=== PATIENT | female | born 1960 | race Caucasian/White ===

== ENCOUNTER → 2018-12-19 | Day surgery (SDC) | payer BC ==
--- OUTSIDE RECORDS SUMMARY | 2018-12-19 09:38 | XMS REPORT | Clinical Summary ---
:1960 Author Organization [facility] Address [address] [place] [address] Care Team Providers Name Role Phone Severo Gonsales MD Primary Care Provider Allergies Active Allergy Reactions Severity Noted Date Comments Sulfa (Sulfonamide Antibiotics) 07/12/2016 Medications Medication Sig Dispensed Refills Start Date End Date Status inFLIXimab Infuse into a 0 Active (REMICADE) 100 mg venous catheter. injection Infuse every 6 weeks venlafaxine XR Take 150 mg by 0 Active (EFFEXOR-XR) 150 MG mouth daily. 24 hr capsule multivitamin Take 1 capsule by 0 Active capsule mouth daily. atorvastatin Take 80 mg by 0 Active (LIPITOR) 80 MG mouth daily. tablet levothyroxine TAKE ONE (1) 1 05/18/2017 Active (SYNTHROID, TABLET(S) BY LEVOXYL) 100 mcg MOUTH TWICE A tablet WEEK. buPROPion XL TAKE ONE (1) 1 06/13/2017 Active (WELLBUTRIN XL) 150 TABLET(S) BY MG 24 hr tablet MOUTH ONCE A DAY IN THE MORNING. venlafaxine XR TAKE ONE (1) 1 06/13/2017 Active (EFFEXOR-XR) 75 MG CAPSULE(S) BY 24 hr capsule MOUTH ONCE A DAY WITH FOOD. TAKE WITH 150MG. mercaptopurine TAKE ONE AND 45 tablet 0 12/18/2017 01/15/20 Discontinued (PURINETHOL) 50 mg ONE-HALF (1 AND 18 chemo tablet 1/2) TABLET(S) BY MOUTH ONCE A DAY. mercaptopurine TAKE ONE AND 45 tablet 0 01/15/2018 02/15/20 (PURINETHOL) 50 mg ONE-HALF (1 AND 18 chemo tablet 1/2) TABLET(S) BY MOUTH ONCE A DAY. mercaptopurine TAKE ONE AND 45 tablet 0 02/08/2018 03/10/20 (PURINETHOL) 50 mg ONE-HALF (1 AND 18 chemo tablet 1/2) TABLET(S) BY MOUTH ONCE A DAY. sodium,potassium,ma Take 2 Bottles by 354 mL 0 09/05/2018 09/05/19 g sulfates (SUPREP mouth once for 1 19 BOWEL PREP KIT) dose. Use as 17.5-3.13-1.6 gram directed per recon soln physician office instructions Dispense one kit which contains 2 bottles Active Problems No known active problems Encounters Date Type Specialty Care Team Description 11/06/2018 Telephone Gastroenterology Antonette Muñoz LVN 11/05/2018 Telephone Gastroenterology Antonette Muñoz Ulcerative pancolitis (HCC) (Primary Dx); TOPOLOGY TEACHER Vitamin B 12 deficiency; Malaise and fatigue 10/19/2018 Telephone GastroenterAntonette Matos, TOPOLOGY TEACHER 10/17/2018 Lab Lab Loretta Moncada MD 10/17/2018 Documentation GastroenterLoretta Harrell, Colonoscopy 10/12/2018 Telephone Loretta Moore MD 09/07/2018 Telephone Gastroenterology Antonette Muñoz, TOPOLOGY TEACHER 09/05/2018 Office Visit GastroenterLoretta Harrell, Ulcerative pancolitis without complication (HCC) (Primary Dx); B12 deficiency 09/05/2018 Telephone Loretta Moore MD 08/08/2018 Telephone Gastroenterology Antonette Muñoz, TOPOLOGY TEACHER 05/28/2018 Telephone Gastroenterology Antonette Muñoz, TOPOLOGY TEACHER 04/09/2018 Telephone Gastroenterology Antonette Muñoz, TOPOLOGY TEACHER 03/07/2018 Documentation GastroenterLoretta Harrell, MARY kramer MD 03/06/2018 Refill Loretta Moore MD 03/05/2018 Office Visit GastroenterLoretta Harrell, Ulcerative pancolitis without complication (Primary Dx); GREYSON positive; B12 deficiency; Depression, unspecified depression type; Arthralgia, unspecified joint; Recurrent infections; Encounter for medication management 02/08/2018 Refill Loretta Moore L., MD 01/14/2018 Refill Gastroenterology Loretta Moncada MD after 12/18/2017 Family History Patient is adopted Medical History Relation Name Comments Colon cancer Neg Hx Colon polyps Neg Hx Social History Tobacco Use Types Packs/Day Years Used Date Former Smoker Smokeless Tobacco: Never Used Alcohol Use Drinks/Week oz/Week Comments Yes Sex Assigned at Date Recorded Not on file Job Start Date Occupation Industry Not on file Not on file Not on file Travel History Travel Start Travel End No recent travel history available. Last Filed Vital Signs Vital Sign Reading Time Taken Blood Pressure 107/73 09/05/2018 2:33 PM IP LITIGATION ASSOCIATE Pulse 103 09/05/2018 2:33 PM IP LITIGATION ASSOCIATE Temperature 36.7 C (98 F) 03/05/2018 2:38 PM CDT Respiratory Rate - - Oxygen Saturation - - Inhaled Oxygen Concentration - - Weight 64.9 kg (143 lb) 09/05/2018 2:33 PM IP LITIGATION ASSOCIATE Height 167.6 cm (5' 6") 09/05/2018 2:33 PM IP LITIGATION ASSOCIATE Body Mass Index 23.08 09/05/2018 2:33 PM IP LITIGATION ASSOCIATE Plan of Treatment Date Type Specialty Care Team Description 03/14/2019 Office Visit Gastroenterology Loretta Moncada MD [address] [facility] [address] [place] [address] [phone] Health Maintenance Due Date Last Done Comments BREAST CANCER SCREENING 2009 SHINGLES VACCINES (#1) 2009 INFLUENZA VACCINE 02/07/2019 04/14/2016 COLONOSCOPY SCREENING 10/17/2020 10/17/2018, 09/23/2016 Procedures Procedure Name Priority Date/Time Associated Diagnosis Comments COMPREHENSIVE Routine 11/05/2018 1:30 Ulcerative Results for this METABOLIC PANEL PM CDT pancolitis (HCC) procedure are in Vitamin B 12 the results deficiency section. Malaise and fatigue CBC WITH PLATELET AND Routine 11/05/2018 1:30 Ulcerative Results for this DIFFERENTIAL PM CDT pancolitis (HCC) procedure are in Vitamin B 12 the results deficiency section. Malaise and fatigue SURGICAL PATHOLOGY Routine 10/17/2018 11:00 Results for this REQUEST AM CDT procedure are in the results section. TOTAL IRON BINDING Routine 09/05/2018 3:25 Ulcerative Results for this CAPACITY PM IP LITIGATION ASSOCIATE pancolitis without procedure are in complication (HCC) the results B12 deficiency section. FERRITIN LEVEL Routine 09/05/2018 3:25 Ulcerative Results for this PM IP LITIGATION ASSOCIATE pancolitis without procedure are in complication (HCC) the results B12 deficiency section. VITAMIN B12 LEVEL Routine 09/05/2018 3:25 Ulcerative Results for this PM IP LITIGATION ASSOCIATE pancolitis without procedure are in complication (HCC) the results B12 deficiency section. SEDIMENTATION RATE Routine 09/05/2018 3:25 Ulcerative Results for this PM IP LITIGATION ASSOCIATE pancolitis without procedure are in complication (HCC) the results B12 deficiency section. C-REACTIVE PROTEIN Routine 09/05/2018 3:25 Ulcerative Results for this PM IP LITIGATION ASSOCIATE pancolitis without procedure are in complication (HCC) the results B12 deficiency section. THYROID STIMULATING Routine 09/05/2018 3:25 Ulcerative Results for this HORMONE PM IP LITIGATION ASSOCIATE pancolitis without procedure are in complication (HCC) the results B12 deficiency section. VITAMIN D 25 HYDROXY Routine 09/05/2018 3:25 Ulcerative Results for this LEVEL PM IP LITIGATION ASSOCIATE pancolitis without procedure are in complication (HCC) the results B12 deficiency section. COMPREHENSIVE Routine 09/05/2018 3:25 Ulcerative Results for this METABOLIC PANEL PM IP LITIGATION ASSOCIATE pancolitis without procedure are in complication (HCC) the results B12 deficiency section. CBC HEMOGRAM Routine 09/05/2018 3:25 Ulcerative Results for this PM IP LITIGATION ASSOCIATE pancolitis without procedure are in complication (HCC) the results B12 deficiency section. after 12/18/2017 Results CBC with platelet and differential (11/05/2018 1:30 PM CDT) WBC 6.4 3.8 - 10.8 [facility] Thousand/uL [place] RBC 4.04 3.80 - 5.10 [facility] Million/uL [place] HGB 12.6 11.7 - 15.5 [facility] g/dL [place] HCT 36.4 35.0 - 45.0 % [facility] [place] MCV 90.1 80.0 - 100.0 fL [facility] [place] MCH 31.2 27.0 - 33.0 pg [facility] [place] MCHC 34.6 32.0 - 36.0 [facility] g/dL [place] RDW 12.2 11.0 - 15.0 % [facility] [place] Platelet count 202 140 - 400 [facility] Thousand/uL [place] MPV 11.1 7.5 - 12.5 fL [facility] [place] Neutrophils, absolute 2,733 1,500 - 7,800 [facility] cells/uL [place] Lymphocytes, absolute 2,688 850 - 3,900 [facility] cells/uL [place] Monocytes, absolute 659 200 - 950 [facility] cells/uL [place] Eosinophils, absolute 269 15 - 500 [facility] cells/uL [place] Basophils, absolute 51 0 - 200 [facility] cells/uL [place] Neutrophils 42.7 % [facility] [place] Lymphocytes 42.0 % [facility] [place] Monocytes 10.3 % [facility] [place] Eosinophils 4.2 % [facility] [place] Basophils + RC 0.8 % [facility] [place] Specimen Blood Narrative Performed At FASTING:NO [facility] FASTING: NO Resulting Agency Comment Performing Organization Information: Site ID: [id number] Name: [facility] Address: [address] [place] [phone] Director: Sunita Lazar Performing Organization Address City/State/Zipcode Phone Number [facility] [employer] [place] [address] [place], [place] [id number] Comprehensive metabolic panel (11/05/2018 1:30 PM CDT)Only the most recent of2 resultswithin the time period is included. Glucose 86 65 - 139 [facility] Comment: mg/dL [place] Non-fasting reference interval BUN, whole blood 12 7 - 25 mg/dL [facility] [place] Creatinine 0.72 0.50 - 1.05 [facility] Comment: mg/dL [place] For patients >49 years of age, the reference limit for Creatinine is approximately 13% higher for people identified as -Dutch. EGFR Non-Afr. 92 > OR=60 [facility] Dutch mL/min/1.73m [place] 2 EGFR 106 > OR=60 [facility] Dutch mL/min/1.73m [place] 2 BUN/creatinine NOT APPLICABLE 6 - 22 [facility] ratio (calc) [place] Sodium 142 135 - 146 [facility] mmol/L [place] Potassium 4.0 3.5 - 5.3 [facility] mmol/L [place] Chloride 104 98 - 110 [facility] mmol/L [place] CO2 33 (H) 20 - 32 [facility] mmol/L [place] Calcium 9.2 8.6 - 10.4 [facility] mg/dL [place] Protein 6.7 6.1 - 8.1 [facility] g/dL [place] Albumin, S 4.1 3.6 - 5.1 [facility] g/dL [place] Globulin, total 2.6 1.9 - 3.7 [facility] g/dL (calc) [place] Albumin/globulin 1.6 1.0 - 2.5 [facility] ratio (calc) [place] Total bilirubin 0.4 0.2 - 1.2 [facility] mg/dL [place] Alkaline 65 33 - 130 U/L [facility] phosphatase [place] AST 24 10 - 35 U/L [facility] [place] ALT 25 6 - 29 U/L [facility] [place] Specimen Blood Narrative Performed At FASTING:NO [facility] FASTING: NO Resulting Agency Comment Performing Organization Information: Site ID: [id number] Name: [facility] Address: [address] [place] [phone] Director: Sunita Lazar Performing Organization Address City/State/[facility] Phone Number [employer] [address] [address] Surgical pathology request (10/17/2018 11:00 AM CDT) Pathologist [facility] DEPARTMENT OF PATHOLOGY AND GENOMIC MEDICINE Surgical pathology See link below [facility] DEPARTMENT OF report for PDF Lab PATHOLOGY AND Report GENOMIC MEDICINE Result status This is Final [facility] DEPARTMENT OF Report for PATHOLOGY AND [id number] GENOMIC MEDICINE Specimen Performing Organization Address City/State/[facility] Phone Number [facility] DEPARTMENT OF PATHOLOGY AND [address] [place] [id number] [facility] Total iron binding capacity (09/05/2018 3:25 PM IP LITIGATION ASSOCIATE) [facility] Iron level 66 45 - 160 mcg/dL [facility] [place] Iron binding capacity 269 250 - 450 mcg/dL [facility] (calc) [place] Iron saturation 25 11 - 50 % (calc) [facility] [place] Specimen Blood Narrative Performed At FASTING:NO [facility] FASTING: NO Resulting Agency Comment Performing Organization Information: Site ID: [id number] Name: [facility] Address: [address] [place] [phone] Director: Sunita Lazar Performing Organization Address City/[facility]/Zipcode Phone Number [employer] [address] [address] Vitamin D 25 hydroxy level (09/05/2018 3:25 PM IP LITIGATION ASSOCIATE) Pathologist [facility] Vitamin D, 29 (L) 30 - 100 [facility] 25-hydroxy Comment: ng/mL [place] Vitamin D Status 25-OH Vitamin D: Deficiency:<20 ng/mL Insufficiency: 20 - 29 ng/mL Optimal: > or=30 ng/mL For 25-OH Vitamin D testing on patients on D2-supplementation and patients for whom quantitation of D2 and D3 fractions is required, the QuestAssureD(TM) 25-OH VIT D, (D2,D3), LC/MS/MS is recommended: order code 06170 (patients >2yrs). For more information on this test, go to: http://education.DATAllegro/faq/NMC175 (This link is being provided for informational/educational purposes only.) Specimen Blood Narrative Performed At FASTING:NO [facility] FASTING: NO Resulting Agency Comment Performing Organization Information: Site ID: [id number] Name: [facility] Address: [address] [place] [phone] Director: Sunita Lazar Performing Organization Address [facility] Phone Number [employer] [address] [address] Sedimentation rate (09/05/2018 3:25 PM IP LITIGATION ASSOCIATE) [facility] Signature Sedimentation rate 6 < OR=30 mm/h [facility] Specimen Blood Narrative Performed At FASTING:NO [facility] FASTING: NO Resulting Agency Comment Performing Organization Information: Site ID: [id number] Name: [facility] Address: [address] [place] [phone] Director: Sunita Lazar Performing Organization Address [facility] Phone Number [employer] [address] [address] CBC hemogram (09/05/2018 3:25 PM IP LITIGATION ASSOCIATE) WBC 6.4 3.8 - 10.8 [facility] Thousand/uL [place] RBC 3.90 3.80 - 5.10 [facility] Million/uL [place] HGB 12.3 11.7 - 15.5 g/dL [facility] [place] HCT 35.1 35.0 - 45.0 % [facility] [place] MCV 90.0 80.0 - 100.0 fL [facility] [place] MCH 31.5 27.0 - 33.0 pg [facility] [place] MCHC 35.0 32.0 - 36.0 g/dL [employer] [place] RDW 12.6 11.0 - 15.0 % [employer] [place] Platelet count 186 140 - 400 [facility] Thousand/uL [place] MPV 11.4 7.5 - 12.5 fL [employer] [place] Specimen Blood Narrative Performed At FASTING:NO [facility] FASTING: NO Resulting Agency Comment Performing Organization Information: Site ID: MARLENA Name: [facility] Address: [address] [place] [address] Director: Sunita Lazar Performing Organization Address [facility] Phone [place] [address] C-reactive protein (09/05/2018 3:25 PM IP LITIGATION ASSOCIATE) CRP <0.2 <8.0 mg/L [facility] Specimen Blood Narrative Performed At FASTING:NO [facility] FASTING: NO Resulting Agency Comment Performing Organization Information: Site ID: [place] Name: [facility] Address: [address] [place] [phone] Director: Sunita Lazar Performing Organization Address [facility] Number [employer] [place] [phone] Thyroid stimulating hormone (09/05/2018 3:25 PM IP LITIGATION ASSOCIATE) TSH 1.13 0.40 - 4.50 mIU/L [facility] [place] Specimen Blood Narrative Performed At FASTING:NO [facility] FASTING: NO Resulting Agency Comment Performing Organization Information: Site ID: A Name: [facility] Address: [address] [place] [phone] Director: Sunita Lazar Performing Organization Address [facility] [place] [address] Ferritin level (09/05/2018 3:25 PM IP LITIGATION ASSOCIATE) Ferritin level 73 10 - 232 ng/mL [facility] [place] Specimen Blood Narrative Performed At FASTING:NO [facility] FASTING: NO Resulting Agency Comment Performing Organization Information: Site ID: A Name: [facility] Address: [address] [place] [phone] Director: Sunita Lazar Performing Organization Address [facility] Phone Number [place] [address] Vitamin B12 level (09/05/2018 3:25 PM IP LITIGATION ASSOCIATE) Vitamin B12 476 200 - 1,100 pg/mL [facility] Specimen Blood Narrative Performed At FASTING:NO [facility] FASTING: NO Resulting Agency Comment Performing Organization Information: Site ID: [id number] Name: [facility] Address: [address] [place] [phone] Director: Sunita Lazar Performing Organization Address City/State/Zipcode Phone Number [facility] [place] [address] [place] [phone] after 12/18/2017 Advance Directives Patient has advance care planning documents on file. For more information, please contact:[place] [address]
--- OUTSIDE RECORDS SUMMARY | 2018-12-19 09:38 | XMS REPORT ---
:1960 [facility] Address [address] [place] [address] Care Team Providers Name Role Phone Unavailable Unavailable Unavailable Payers Payer Name Policy Type Policy Number Effective Date Expiration Date Problems This patient has no known problems. Allergies, Adverse Reactions, Alerts This patient has no known allergies or adverse reactions. Medications This patient has no known medications.
--- OUTSIDE RECORDS SUMMARY | 2018-12-19 09:38 | XMS REPORT | Clinical Summary ---
:1960 Author Organization [facility] Address [address] [place] [address] Care Team Providers Name Role Phone Unavailable Primary Care Provider Unavailable Allergies Not on File Medications Not on file Active Problems Not on file Social History Tobacco Use Types Packs/Day Years Used Date Never Assessed Sex Assigned at Date Recorded Not on file Job Start Date Occupation Industry Not on file Not on file Not on file Travel History Travel Start Travel End No recent travel history available. Last Filed Vital Signs Not on file Plan of Treatment Not on file Results Not on fileafter 12/18/2017
--- NOTE | 2018-12-19 12:28 | RAD REPORT ---
EXAM DESCRIPTION: US - Guided FNA Non Breast - 12/19/2018 11:14 am CLINICAL HISTORY: Thyroid nodule ICD E04.1 COMPARISON: December 11, 2018 ultrasound TECHNIQUE: Risks, benefits and alternatives of procedure explained to the patient and informed conse nt obtained. Skin and subcutaneous tissues anesthetized with lidocaine. Under sonographic guidance, five 25 gauge needle passes were obtained into the dominant nodule within the right lobe of the thyroid gland. Specimens given to pathology. Patient experienced no immediate complication IMPRESSION: Fine-needle aspiration of a dominant nodule within the right lobe of thyroid gland
== END ==
LOC: FNA 09:32
PROVIDERS: ATTEND Nurse Practitioner Family
DX: E04.1 Nontoxic single thyroid nodule (principal)
CPT/HCPCS: 88162

== ENCOUNTER 2022-11-27 13:46 | Emergency (ER) | payer BC ==
--- OUTSIDE RECORDS SUMMARY | 2022-11-27 13:50 | XMS REPORT | Continuity of Care Document ---
:1960 Author Organization [facility] t Address [address] [facility] [address] [place] [address] Care Team Providers Name Role Phone lIda Calix MD, Severo Gibbs Primary Care Physician [phone] Sandy Polanco Attending Clinician Unavailable Loretta Moncada MD Attending Clinician Antonette Muñoz LVN Attending Clinician Unavailable Shameka Schaefer MA Attending Clinician Unavailable Jaleesa Pinon MA Attending Clinician Unavailable Austen Eric PA-C Attending Clinician [phone] Fela Tai MA Attending Clinician Unavailable IVY GERARDO Attending Clinician Unavailable BRANDIE FABIAN Attending Clinician Unavailable Sandy Polanco Admitting Clinician Unavailable Payers Payer Name Policy Type Policy Number Effective Date Expiration Date S [facility] [id number] 2017 00:00:00 Problems This patient has no known problems. Allergies, Adverse Reactions, Alerts Allergy Allergy Status Severity Reaction(s) Onset Inactive Treating Comm ents Source Name Type Date Date Clinician Other Propensi Active Other (See 2018 Meth ariella ty to Comments) 02-09 adverse 00:00: Hospita reaction 00 l s Sulfa Propensi Active Methodi (Sulfona ty to 07-12 st mide adverse 00:00: Hospita Antibiot reaction 00 l ics) s to drug NO KNOWN Drug Active Univers ALLERGIE Class ity of [facility] Social History Social Habit Start Date Stop Date Quantity Comments Source Gender identity 2019-03-19 Identifies as Method ist 08:12:35 female gender Hospital (finding) Sexual orientation 2019-03-19 Heterosexual Meth odist 08:12:35 (finding) Hospital Alcohol intake 2022-07-22 2022-07-22 Current drinker of Me [facility]odist 00:00:00 00:00:00 alcohol (finding) Hospita l History of Social 2022-07-22 2022-07-[address] function 00:00:00 00:00:00 Hospital Tobacco use and 2019-03-25 2019-03-25 Smokeless tobacco [facility] exposure 00:00:00 00:00:00 non-user Hospital Cigarettes smoked 2019-03-25 2019-03-[address] current (pack per 00:00:00 00:00:00 Hospita l day) - Reported Cigarette 2019-03-25 2019-03-25 [facility] pack-years 00:00:00 00:00:00 Hospital History of tobacco 2016-07-10 Cigarette Smoker [facility] use 00:00:00 Hospital Sex Assigned At [birth year] G[facility] 00:[facility]:00 [facility] Smoking Status Start Date Stop Date Source Ex-smoker 2019-03-25 00:00:00 2019-03-25 00:00:00 [facility] Medications Ordered Filled Start Stop Current Ordering Indication Dosage Frequency Signature Comments Components Source Medication Medication Date Date Medication? Clinician (SIG) Name Name predniSONE 2022- Yes Take 2 Meth ariella (DELTASONE) 5-10 -[address] 10 mg 00:00: 04:59 (20 mg Hospita tablet 00 :00 total) by l mouth 2 (two) times a day for 7 days, THEN 3 tablets (30 mg total) daily for 7 days, THEN 2 tablets (20 mg total) daily for 7 days, THEN 1 tablet (10 mg total) daily for 7 days. predniSONE 2022- Yes Take 2 Meth ariella (DELTASONE) 5-10 -[address] 10 mg 00:00: 04:59 (20 mg Hospita tablet 00 :00 total) by l mouth 2 (two) times a day for 7 days, THEN 3 tablets (30 mg total) daily for 7 days, THEN 2 tablets (20 mg total) daily for 7 days, THEN 1 tablet (10 mg total) daily for 7 days. mesalamine 2022-0 Yes 1000mg QD Insert 1 M ethodi (Canasa) 4-[address] 1000 MG 00:00: y (1,000 Hospit a suppository 00 mg total) l into the rectum nightly. mesalamine 3-0 Yes 1000mg QD Insert 1 M ethodi (Canasa) 4-[address] 1000 MG 00:00: y (1,000 Hospit a suppository 00 mg total) l into the rectum nightly. predniSONE 2022- No Take 2 Meth ariella (DELTASONE) 09-14- tablets st 10 mg 00:00: 04:59 (20 mg Hospita tablet 00 :00 total) by l mouth 2 (two) times a day for 7 days, THEN 3 tablets (30 mg total) daily for 7 days, THEN 2 tablets (20 mg total) daily for 7 days, THEN 1 tablet (10 mg total) daily for 7 days. predniSONE 2022- No Take 2 Meth ariella (DELTASONE) 09-14- tablets st 10 mg 00:00: 04:59 (20 mg Hospita tablet 00 :00 total) by l mouth 2 (two) times a day for 7 days, THEN 3 tablets (30 mg total) daily for 7 days, THEN 2 tablets (20 mg total) daily for 7 days, THEN 1 tablet (10 mg total) daily for 7 days. budesonide 2022- No Insert 1 Me thodi (Uceris) 2 09-02- Applicator st mg/actuatio 00:00: 04:59 ful into H ospita n foam 00 :00 the rectum l 2 (two) times a day for 7 days, THEN 1 Applicator ful daily for 30 days. budesonide 2022- No Insert 1 Me thodi (Uceris) 2 09-02- Applicator st mg/actuatio 00:00: 04:59 ful into H ospita n foam 00 :00 the rectum l 2 (two) times a day for 7 days, THEN 1 Applicator ful daily for 30 days. sodium,pota 2022-0 Yes Drink 1 Met hodi ssium,mag 2-[address] sulfates 00:00: directed Hospi ta (Suprep 00 for dose 1 l Bowel Prep and 1 Kit) bottle as 17.5-3.13-1 directed .6 gram for dose recon soln 2. sodium,pota 2022-0 Yes Drink 1 Met hodi ssium,mag 2-[address] sulfates 00:00: directed Hospi ta (Suprep 00 for dose 1 l Bowel Prep and 1 Kit) bottle as 17.5-3.13-1 directed .6 gram for dose recon soln 2. buPROPion 0 Yes 300mg QD Take 1 Metho di XL 1-[address] (WELLBUTRIN 00:00: (300 mg Hos gunner XL) 300 MG 00 total) by l 24 hr mouth tablet every morning. venlafaxine 0 Yes TAKE ONE Me thodi XR 1-05 (1) st (EFFEXOR-XR 00:00: CAPSULE(S) Hospita ) 75 MG 24 00 BY MOUTH l hr capsule EVERY DAY WITH FOOD. buPROPion 2022-0 Yes 300mg QD Take 1 Metho di XL 1-[address] (WELLBUTRIN 00:00: (300 mg Hos gunner XL) 300 MG 00 total) by l 24 hr mouth tablet every morning. venlafaxine 2022-0 Yes TAKE ONE Me thodi XR 1-05 (1) st (EFFEXOR-XR 00:00: CAPSULE(S) Hospita ) 75 MG 24 00 BY MOUTH l hr capsule EVERY DAY WITH FOOD. inFLIXimab Yes Infuse Metho di 100 mg 6-[address] injection 15:57: venous Hospit a 59 catheter. l Infuse every 6 weeks venlafaxine 2021- Yes 150mg QD Take 150 M ethodi XR 6-[address] (EFFEXOR-XR 15:57: mouth Hospi ta ) 150 MG 24 59 daily. l hr capsule multivitami 2021-0 Yes 1{capsu QD Take 1 M ethodi n capsule 6-30 le} capsule by st 15:57: mouth Hospita 59 daily. l atorvastati 2021-0 Yes 80mg QD Take 80 mg Methodi n (LIPITOR) 6-[address] 80 MG 15:57: daily. Hospita tablet 59 l cholecalcif 2022-0 Yes 1000U QD Take 1,000 Methodi brennan, 6-[address] vitamin D3, 15:57: mouth Hospi ta 1,000 unit 59 daily. l tablet inFLIXimab 0 Yes Infuse Metho di 100 mg 6-[address] injection 15:57: venous Hospit a 59 catheter. l Infuse every 6 weeks venlafaxine 0 Yes 150mg QD Take 150 M ethodi XR 6-[address] (EFFEXOR-XR 15:57: mouth Hospi ta ) 150 MG 24 59 daily. l hr capsule multivitami 0 Yes 1{capsu QD Take 1 M ethodi n capsule 6-30 le} capsule by st 15:57: mouth Hospita 59 daily. l atorvastati 0 Yes 80mg QD Take 80 mg Methodi n (LIPITOR) 6-[address] 80 MG 15:57: daily. Hospita tablet 59 l cholecalcif 2021-0 Yes 1000U QD Take 1,000 Methodi brennan, 6-[address] vitamin D3, 15:57: mouth Hospi ta 1,000 unit 59 daily. l tablet buPROPion 2016-07 Yes TAKE ONE Meth ariella XL 2-05 (1) st (WELLBUTRIN 00:00: TABLET(S) H ospita XL) 150 MG 00 BY MOUTH l 24 hr ONCE A DAY tablet IN THE MORNING. buPROPion 2016-07 Yes TAKE ONE Meth ariella XL 2-05 (1) st (WELLBUTRIN 00:00: TABLET(S) H ospita XL) 150 MG 00 BY MOUTH l 24 hr ONCE A DAY tablet IN THE MORNING. levothyroxi 2016-07 Yes TAKE ONE Me thodi ne 07-18 (1) st (SYNTHROID, 00:00: TABLET(S) H ospita LEVOXYL) 00 BY MOUTH l 100 mcg TWICE A tablet WEEK. levothyroxi 2016-07 Yes TAKE ONE Me thodi ne 07-18 () st (SYNTHROID, 00:00: TABLET(S) H ospita LEVOXYL) 00 BY MOUTH l 100 mcg TWICE A tablet WEEK. Immunizations Ordered Immunization Filled Immunization Date Status Commrene ts Source Name Name FLUCELVAX QUAD PF 2022-04-[address] 00:00:00 Hospital FLUCELVAX QUAD PF 2022-04-[address] 00:00:00 [facility] FLUCELVAX QUAD PF 2021-04-[address] 00:00:00 Hospital FLUCELVAX QUAD PF 2021-04-[address] 00:00:00 [facility] PFIZER COVID-19 MRNA 2020-07-22 Completed Meth odist VACCINATION 00:00:00 [facility] PFIZER COVID-19 MRNA 2020-07-22 Completed Meth odist VACCINATION 00:00:00 [facility] PFIZER COVID-19 MRNA 2020-07-01 Completed Meth odist VACCINATION 00:00:00 [facility] PFIZER COVID-19 MRNA 2020-07-01 Completed Meth odist VACCINATION 00:00:00 [facility] FLUCELVAX QUAD PF 2020-05-[address] 00:00:00 [facility] FLUCELVAX QUAD PF 2020-05-[address] 00:00:00 Hospital Vital Signs Vital Name Observation Time Observation Value Comments Source Body height 2022-07-22 17:33:00 165.1 cm [facility] Body weight 2022-07-22 17:33:00 63.05 kg [facility] BMI 2022-07-22 17:33:00 23.13 kg/m2 [facility] Systolic blood 2022-01-06 20:56:00 122 mm[Hg] [facility] pressure Diastolic blood 2022-01-06 20:56:00 75 mm[Hg] [facility] pressure Heart rate 2022-01-06 20:56:00 76 /min [facility] Procedures Procedure Date / Time Performing Clinician Source Performed COLONOSCOPY-EXTERNAL MCE 2022-09-03 02:23:33 Loretta Moncada Met [facility] SURGICAL PATHOLOGY 2022-09-02 20:55:00 MoncadaLoretta jim [facility] REQUEST XR KNEE 4+ VW RIGHT 2022-07-22 17:05:05 Austen Eric Met [facility] [place] ARTHROCENTESIS 2022-07-22 16:30:00 Austen Eric [facility] ASPIR&/INJ MAJOR JT/BURSA W/O US CBC HEMOGRAM 2022-07-07 13:38:00 MoncadaLoretta jim [facility] spital COMPREHENSIVE METABOLIC 2022-07-07 13:38:[address] [facility] PANEL C-REACTIVE PROTEIN 2022-07-07 13:38:00 [facility] Loretta Janneth [facility] SEDIMENTATION RATE 2022-07-07 13:38:00 [facility] VITAMIN B12 LEVEL 2022-07-07 13:38:00 [facility] VITAMIN D 25 HYDROXY 2022-07-07 13:38:00 [facility] Loretta L. [facility] LEVEL TOTAL IRON BINDING 2022-07-07 13:38:00 [facility] CAPACITY FERRITIN LEVEL 2022-07-07 13:38:00 [facility] Henna [facility] Plan of Care Planned Activity Planned Date Details Comments Source Future Scheduled 2022-11-27 Hepatitis C screening [facility] Test 13:15:32 (procedure) [code = 793852730] Future Scheduled 2022-11-27 Screening for [facility] Test 13:15:32 malignant neoplasm of cervix (procedure) [code = 335831118] Future Scheduled 2022-11-27 BREAST CANCER [facility] Test 13:15:32 SCREENING [code = BREAST CANCER SCREENING] Future Scheduled 2022-11-27 Screening for [facility] Test 13:15:32 malignant neoplasm of lung (procedure) [code = 035961578] Future Scheduled 2022-11-27 COVID-19 VACCINE (6 - [facility] Test 13:15:32 Booster for Pfizer series) [code = COVID-19 VACCINE (6 - Booster for Pfizer series)] Future Scheduled 2022-11-27 INFLUENZA VACCINE [facility] Test 13:15:32 [code = INFLUENZA VACCINE] Future Scheduled 2022-11-27 COLONOSCOPY SCREENING [facility] Test 13:15:32 [code = COLONOSCOPY SCREENING] Future Scheduled 2022-11-21 Hepatitis C screening [facility] Test 11:40:47 (procedure) [code = 137238502] Future Scheduled 2022-11-21 Screening for [facility] Test 11:40:47 malignant neoplasm of cervix (procedure) [code = 348934387] Future Scheduled 2022-11-21 BREAST CANCER [facility] Test 11:40:47 SCREENING [code = BREAST CANCER SCREENING] Future Scheduled 2022-11-21 Screening for [facility] Test 11:40:47 malignant neoplasm of lung (procedure) [code = 008382774] Future Scheduled 2022-11-21 COVID-19 VACCINE (6 - Me [facility] Test 11:40:47 Booster for Pfizer series) [code = COVID-19 VACCINE (6 - Booster for Pfizer series)] Future Scheduled 2022-11-21 INFLUENZA VACCINE [facility] Test 11:40:47 [code = INFLUENZA VACCINE] Future Scheduled 2022-11-21 COLONOSCOPY SCREENING [facility] Test 11:40:47 [code = COLONOSCOPY SCREENING] Encounters Start End Encounter Admission Attending Care Care Encounter Source Date/Time Date/Time Type Type Clinicians Facility Department ID 2022-11-18 2022-11-18 [id number] [facility] 12:00:00 12:00:[address] [place] [address] 2022-11-16 2022-11-16 Orders Viviane, 1.2.840.1 [id number] Methodi 00:00:00 00:00:00 Only Loretta Henna 60906.1.[address] 3.430.2.7 Hospit a .3.771182 l .8 2022-11-16 2022-11-16 Arnulfo Moncada 1.2.840.1 [id number] Methodi 00:00:00 00:00:00 Only Loretta L. 48177.1.[address] 3.430.2.7 Hospit a .3.898830 l .8 2022-11-15 2022-11-15 Casie Muñoz 1.2.840.1 [id number] Methodi 00:00:00 00:00:[address] 3.430.2.7 Hospit a .3.149016 l .8 2022-11-15 2022-11-15 [facility], 1.2.840.1 [id number] [id number] Methodi 00:00:00 00:00:00 ion Loretta L. 82701.1.[address] 3.430.2.7 Hospit a .3.946430 l .8 2022-11-15 2022-11-15 Telephone [facility], 1.2.840.1 [id number] 2 [id number] Methodi 00:00:00 00:00:[address] 3.430.2.7 Hospit a .3.774477 l .8 2022-11-15 2022-11-15 [facility], 1.2.840.1 [id number] Methodi 00:00:00 00:00:00 ion Loretta L. 81008.1.[address] 3.430.2.7 Hospit a .3.694803 l .8 2022-10-20 2022-10-20 [facility] Moncada, 1.2.840.1 [id number] Methodi 00:00:00 00:00:00 Only Loretta L. 07185.1.[address] 3.430.2.7 Hospit a .3.265936 l .8 2022-10-20 2022-10-20 Orders Moncada, 1.2.840.1 [id number] Methodi 00:00:00 00:00:00 Only Loretta L. 12774.1.[address] 3.430.2.7 Hospit a .3.128203 l .8 2022-09-22 2022-09-22 Telephone [place], 1.2.840.1 [id number] 21 [id number] Methodi 00:00:00 00:00:[address] 3.430.2.7 Hospit a .3.820626 l .8 2022-09-22 2022-09-22 Telephone [place], 1.2.840.1 [id number] 21 [id number] Methodi 00:00:00 00:00:[address] 3.430.2.7 Hospit a .3.648710 l .8 2022-09-16 2022-09-16 Documentat Moncada, 1.2.840.1 [id number] Methodi 00:00:00 00:00:00 ion Loretta L. 34379.1.[address] 3.430.2.7 Hospit a .3.577235 l .8 2022-09-16 2022-09-16 Documentat Moncada, 1.2.840.1 [id number] 236 [id number] Methodi 00:00:00 00:00:00 ion Loretta L. 96379.1.[address] 3.430.2.7 Hospit a .3.815862 l .8 2022-09-14 2022-09-14 [facility], 1.2.840.1 [id number] 21 [id number] Methodi 00:00:00 00:00:[address] 3.430.2.7 Hospit a .3.483498 l .8 2022-09-14 2022-09-14 Orders Moncada, 1.2.840.1 [id number] Methodi 00:00:00 00:00:00 Only Loretta L. 28121.1.[address] 3.430.2.7 Hospit a .3.204238 l .8 2022-09-14 2022-09-14 Orders Moncada, 1.2.840.1 [id number] Methodi 00:00:00 00:00:00 Only Loretta L. 96553.1.[address] 3.430.2.7 Hospit a .3.357290 l .8 2022-09-14 2022-09-14 Orders Moncada, 1.2.840.1 [id number] Methodi 00:00:00 00:00:00 Only Loretta L. 21537.1.[address] 3.430.2.7 Hospit a .3.855855 l .8 2022-09-14 2022-09-14 Orders Moncada, 1.2.840.1 [id number] Methodi 00:00:00 00:00:00 Only Loretta L. 26188.1.[address] 3.430.2.7 Hospit a .3.666585 l .8 2022-09-14 2022-09-14 Telephone [place], 1.2.840.1 [id number] 21 [id number] Methodi 00:00:00 00:00:[address] 3.430.2.7 Hospit a .3.768791 l .8 2022-09-02 2022-09-02 [facility], 1.2.840.1 [id number] Methodi 14:40:00 14:45:00 L[address] 3.430.2.7 Hospit a .3.431951 l .8 2022-09-02 2022-09-02 [facility], 1.2.840.1 [id number] 2329 Methodi 14:40:00 14:45:00 Loretta [address] 3.430.2.7 Hospit a .3.163888 l .8 2022-09-02 2022-09-02 Documentat Moncada, 1.2.840.1 [id number] Methodi 00:00:00 00:00:00 ion Loretta L. 14726.1.[address] 3.430.2.7 Hospit a .3.214612 l .8 2022-09-02 2022-09-02 Telephone Zi, 1.2.840.1 [id number] [id number] Methodi 00:00:00 00:00:[address] 3.430.2.7 Hospit a .3.546024 l .8 2022-09-02 2022-09-02 Documentat Moncada, 1.2.840.1 [id number] Methodi 00:00:00 00:00:00 ion Loretta L. 90516.1.[address] 3.430.2.7 Hospit a .3.911407 l .8 2022-09-02 2022-09-02 Telephone Zi, 1.2.840.1 [id number] 2099 [id number] Methodi 00:00:00 00:00:[address] 3.430.2.7 Hospit a .3.934747 l .8 2022-09-01 2022-09-01 Refill Moncada, 1.2.840.1 [id number] Methodi 00:00:00 00:00:00 L[address] 3.430.2.7 Hospit a .3.812005 l .8 2022-09-01 2022-09-01 Refill Moncada, 1.2.840.1 [id number] Methodi 00:00:00 00:00:00 Loretta [address] 3.430.2.7 Hospit a .3.335069 l .8 2022-08-31 2022-08-31 Orders Silvano, 1.2.840.1 [id number] 2099 [id number] Methodi 00:00:00 00:00:00 Only Shameka 65531.1.[address] 3.430.2.7 Hospit a .3.034630 l .8 2022-08-31 2022-08-31 Orders Silvano, 1.2.840.1 [id number] 2099 [id number] Methodi 00:00:00 00:00:00 Only Shameka 48872.1.[address] 3.430.2.7 Hospit a .3.125855 l .8 2022-08-31 2022-08-31 Orders Silvano, 1.2.840.1 [id number] 2099 [id number] Methodi 00:00:00 00:00:00 Only Shameka 25426.1.[address] 3.430.2.7 Hospit a .3.721796 l .8 2022-08-31 2022-08-31 Orders Silvano, 1.2.840.1 [id number] 2099 [id number] Methodi 00:00:00 00:00:00 Only Shameka 09843.1.[address] 3.430.2.7 Hospit a .3.620100 l .8 2022-08-24 2022-08-24 Telephone Moncada, 1.2.840.1 [id number] 2099 [id number] Methodi 00:00:00 00:00:00 L[address] 3.430.2.7 Hospit a .3.217505 l .8 2022-08-24 2022-08-24 Telephone Moncada, 1.2.840.1 [id number] 2099 [id number] Methodi 00:00:00 00:00:00 Loretta L[address] 3.430.2.7 Hospit a .3.576809 l .8 2022-07-22 2022-07-22 Office Rubenstak, 1.2.840.1 [id number] Methodi 10:30:00 10:45:00 Visit Austen 74272.1.[address] [place] 3.430.2.7 Hospit a .3.826179 l .8 2022-07-22 2022-07-22 Office [facility], 1.2.840.1 [id number] 8064 Methodi 10:30:00 10:45:00 Visit Austen 81934.1.[address] [place] 3.430.2.7 Hospit a .3.370027 l .8 2022-07-22 2022-07-22 Outpatient [facility] [id number] [place] 00:00:00 00:00:00 [place] [address] 2022-07-21 2022-07-21 Travel 1.2.840.1 1.2.682.297 7543 [id number] Methodi 00:00:00 00:00:[address] 3.430.2.7 0.2.7.3.698 Ho spita .3.653381 084.8 l .8 2022-07-21 2022-07-21 [facility] 1.2.840.1 [id number] 21 [id number] Methodi 00:00:00 00:00:00 Only Fela rojas 98081.1.1 [address] 3.430.2.7 Hospit a .3.914328 l .8 2022-07-21 2022-07-21 Travel 1.2.840.1 1.2.614.532 9523 [id number] Methodi 00:00:00 00:00:[address] 3.430.2.7 0.2.7.3.698 Ho spita .3.658704 084.8 l .8 2022-07-21 2022-07-21 [facility] 1.2.840.1 [id number] 21 [id number] Methodi 00:00:00 00:00:00 Only Fela rojas 93622.1.1 [address]13 s t D 3.430.2.7 Hospit a .3.279927 l .8 2022-07-08 2022-07-08 Telephone Toni, 1.2.840.1 [id number] 2 [id number] Methodi 00:00:00 00:00:[address] 3.430.2.7 Hospit a .3.607660 l .8 2022-07-08 2022-07-08 Telephone Toni, 1.2.840.1 [id number] 2 [id number] Methodi 00:00:00 00:00:[address] 3.430.2.7 Hospit a .3.439507 l .8 2022-06-27 2022-06-27 [facility], 1.2.840.1 [id number] Methodi 15:45:00 15:56:34 huy Loretta Henna 22129.1.[address] 3.430.2.7 Hospit a .3.084050 l .8 2022-06-27 2022-06-27 [facility], 1.2.840.1 [id number] Methodi 15:45:00 15:56:[address] 3.430.2.7 Hospit a .3.467479 l .8 2022-06-27 2022-06-27 Travel 1.2.840.1 1.2.207.679 2772 [id number] Methodi 00:00:00 00:00:[address] 3.430.2.7 0.2.7.3.698 Ho spita .3.859060 084.8 l .8 2022-06-27 2022-06-27 Travel 1.2.840.1 1.2.594.522 6927 140082 Methodi 00:00:00 00:00:[address] 3.430.2.7 0.2.7.3.698 Ho spita .3.405792 084.8 l .8 2022-03-03 2022-03-03 Telephone [facility], 1.2.840.1 [id number] 2 [id number] Methodi 00:00:00 00:00:[address] 3.430.2.7 Hospit a .3.022560 l .8 2022-03-03 2022-03-03 [facility], 1.2.840.1 [id number] 130 [id number] Methodi 00:00:00 00:00:[address] 3.430.2.7 Hospit a .3.663750 l .8 2022-03-03 2022-03-03 Telephone [facility], 1.2.840.1 [id number] 2 [id number] Methodi 00:00:00 00:00:[address] 3.430.2.7 Hospit a .3.635593 l .8 2022-03-03 2022-03-03 [facility], 1.2.840.1 [id number] 535 [id number] Methodi 00:00:00 00:00:00 ion Loretta Aguillon 68141.1.[address] 3.430.2.7 Hospit a .3.167244 l .8 2022-01-06 2022-01-06 Office Moncada, 1.2.840.1 [id number] Methodi 16:00:00 16:34:43 Visit Loretta Aguillon 99402.1.[address] 3.430.2.7 Hospit a .3.558552 l .8 2022-01-06 2022-01-06 Office Moncada, 1.2.840.1 [id number] 4228 Methodi 16:00:00 16:34:43 Visit Loretta Aguillon 55333.1.[address] 3.430.2.7 Hospit a .3.334384 l .8 2022-01-06 2022-01-06 Travel 1.2.840.1 1.2.116.951 [id number] [facility] 00:00:00 00:00:[address] 3.430.2.7 0.2.7.3.698 Ho spita .3.636718 084.8 l .8 2022-01-06 2022-01-06 Travel 1.2.840.1 1.2.175.286 [id number] [facility] 00:00:00 00:00:[address] 3.430.2.7 0.2.7.3.698 Ho spita .3.840121 084.8 l .8 2021-11-12 2021-11-12 Outpatient JOAQUIN Polanco [facility] [id number] [facility] 12:00:00 12:00:00 Sandy Rolle [facility] 2021-04-19 2021-04-19 Outpatient [facility] [id number] [place] 00:00:00 00:00:00 LORETTA [address] 2020-12-15 2020-12-15 Outpatient [facility] [id number] [place] 00:00:00 00:00:[address] 2020-12-11 2020-12-11 Outpatient VIVIANE, [facility] [id number] [place] 00:00:00 00:00:00 LORETTA [address] 2020-10-16 2020-10-16 Outpatient JOAQUIN Polanco, [facility] [id number] [facility] 16:26:00 16:26:00 Sandy [id number] [facility] 2020-09-10 2020-09-10 Outpatient VIVIANE, [facility] [id number] [place] 00:00:00 00:00:00 LORETTA 861 [facility] 2020-08-04 2020-08-04 Outpatient [facility] [id number] 304 [place] 00:00:00 00:00:[address] 2020-07-22 2020-07-22 Outpatient Marko HUMAIRA, [facility] [id number] [facility] 09:00:00 09:00:00 IVY [id number] [facility] 2020-07-22 2020-07-22 Outpatient Marko HUMAIRA, [facility] [id number] [facility] 09:00:00 09:00:00 IVY [facility] 2020-07-01 2020-07-01 Outpatient Marko HUMAIRA, [facility] [id number] [facility] 09:50:00 09:50:00 IVY [facility] 2020-04-06 2020-04-06 Outpatient CAREN, [facility] [id number] [place] 00:00:00 00:00:00 BRANDIE [address] 2020-03-12 2020-03-12 Outpatient VIVIANE, [facility] [id number] [place] 00:00:00 00:00:00 LORET[place] [address] 2020-02-19 2020-02-19 Outpatient CAREN, [facility] [id number] [place] 00:00:00 00:00:00 BRANDIE [address] 2020-02-19 2020-02-19 Outpatient [facility] [id number] [address] [place] 00:00:00 00:00:[address] 2019-09-12 2019-09-12 Outpatient VIVIANE, [facility] [id number] [address] [place] 00:00:00 00:00:00 L[place]ET[place] [address] 2019-08-30 2019-08-30 Outpatient NOELLE Cobian [id number] [facility] 12:00:00 12:00:00 Sandy [id number] [facility] 2019-03-25 2019-03-25 Outpatient CAREN [facility] [id number] [place] 00:00:00 00:00:00 BRANDIE [address] Results Test Description Test Time Test Comments Results Result Comments Source Surgical pathology request 2022-09-07 03:26:27 Test Item Value Reference Range Interpretation Comme nts Case number (test code = [id number]) [id number] Surgical pathology report (test code = See link below for PDF Lab R eport 2255) Result status (test code = 6958050) This is Final Report [facility] [id number] [id number] [facility] [id number] 03:26:27 Test Item Value Reference Range Interpretation Comments Case number (test code = [id number]) Surgical pathology See link below for report (test code = PDF Lab Report 2255) Result status (test code This is Final Report = [id number]) [id number] [facility] [id number] 18:30:00 Test Item Value Reference Range Interpretation Comments Iron level (test 95 See_Comment [Automated code = 2498-4) message] The system which generated this result transmit bj reference range : 45 - 160 mcg/dL . The reference range was not u sed to interpret th is result as normal/abnormal . Iron binding 331 See_Comment [Automated capacity (test message] The code = 2500-7) system which generated this result transmit bj reference range : 250 - 450 mcg/d L (calc). The reference range was not used to interpret this result as normal/abnormal . Iron saturation 29 See_Comment [Automated (test code = message] The 2502-3) system which generated this result transmit bj reference range : 16 - 45 % (calc ). The reference range was not u sed to interpret th is result as normal/abnormal . STACY (test code = FASTING:YES STACY) FASTING: YES RAC (test code = Performing RAC) Organization Information: Site ID: RGA [facility] Address: [address] [place] [phone] Director: Herman Rodriguez [facility] [id number] 18:30:00 Test Item Value Reference Range Interpretation Comments Glucose (test code 68 mg/dL 65-99 Fasting = 2345-7) reference interval BUN (test code = 18 mg/dL - 3094-0) Creatinine (test 0.70 mg/dL 0.50-1.05 code = 2160-0) eGFR (test code = 97 See_Comment The eGFR i s based 26998-7) on the CKD-EPI 2020 equation. To calculate the n ew eGFR from a previous Creatinine or Cystatin Cresul t, go to https://www.kid ne y.org/profasa black/kdoqi/gfr%5F ca lculator [Automated message] The system which generated this result transmitted reference range : > OR = 60 mL/min/1.73m2. The reference range was not used to interpr et this result as normal/abnormal . BUN/creatinine NOT APPLICABLE See_Comment [Automated ratio (test code = message] The 3097-3) system which generated this result transmitted reference range : 6 - 22 (calc). The reference range was not used to interpr et this result as normal/abnormal . Sodium (test code 141 mmol/L 135-146 = 2951-2) Potassium (test 4.1 mmol/L 3.5-5.3 code = 2823-3) Chloride (test 104 mmol/L 98-110 code = 2075-0) CO2 (test code = 32 mmol/L -32 2028-03) Calcium (test code 9.4 mg/dL 8.6-10.4 = 52105-5) Protein (test code 6.4 g/dL 6.1-8.1 = 2885-2) Albumin, S (test 4.1 g/dL 3.6-5.1 code = 1751-7) Globulin, total 2.3 See_Comment [Automated (test code = message] The 27411-6) system which generated this result transmitted reference range : 1.9 - 3.7 g/dL (calc). The reference range was not used to interpret this result as normal/abnormal . Albumin/globulin 1.8 See_Comment [Automated ratio (test code = message] The 1758-0) system which generated this result transmitted reference range : 1.0 - 2.5 (calc ). The reference range was not used to interpr et this result as normal/abnormal . Total bilirubin 0.6 mg/dL 0.2-1.2 (test code = 1975-2) Alkaline 74 U/L 37-153 phosphatase (test code = 6768-6) AST (test code = 19 U/L 10-35 1920-8) ALT (test code = 15 U/L 6-29 1742-6) STACY (test code = FASTING:YES STACY) FASTING: YES RAC (test code = Performing RAC) Organization Information: Site ID: [facility] Name: [facility] Address: [address] [place] [phone] Director: [place] Chadwick [facility] CenterVitamin B12 [id number] 18:30:00 Test Item Value Reference Interpretation Comments Range Vitamin B12 382 pg/mL 200-1100 Please Note: A lthough the (test code = reference range for 2132-03) [id number] is 2 00-1100 pg/mL, it has b een reported that between5 a nd 10% of patients with v alues between 200 and 400pg/m L may experience neur opsychiatric and hematologic abnormalities due to occult B 12 deficiency; les s than 1%of patients with v alues above 400 pg/mL will have symptoms. STACY (test FASTING:YES code = STACY) FASTING: YES RAC (test Performing code = RAC) Organization Information: Site ID: [facility]: [facility] Address: [address] [place] [phone] Director: Herman CasillasMem[facility] HospitalFerritin [id number] 18:30:00 Test Item Value Reference Range Interpretation Comments Ferritin level (test 12 ng/mL 16-288 L code = 2276-4) STACY (test code = STACY) FASTING:YES FASTING: YES RAC (test code = RAC) Performing Organization Information: Site ID: [facility]: [facility] Address: [address] [place] [phone] Director: Herman Rodriguez Lab Interpretation (test Abnormal code = 15579-1) [facility]-reactive [id number] 18:30:00 Test Item Value Reference Range Interpretation Comments CRP (test code = 0.3 mg/L <=8.0 1988-5) STACY (test code = FASTING:YES FASTING: YES STACY) RAC (test code = Performing Organization RAC) Information: Site ID: [facility]: [facility] Address: [address] [place] [phone] Director: Herman Rodriguez [facility] [id number] 18:30:00 Test Item Value Reference Range Interpretation Comments WBC (test code = 6.1 See_Comment [Automated 6690-2) message] The system which generated this result transmit bj reference range : 3.8 - 10.8 Thousand/uL. Th e reference range was not used to interpret this result as normal/abnormal . RBC (test code = 4.05 See_Comment [Automated 789-8) message] The system which generated this result transmit bj reference range : 3.80 - 5.10 Million/uL. The reference range was not used to interpret this result as normal/abnormal . HGB (test code = 12.2 g/dL 11.7-15.5 718-7) HCT (test code = 37.0 % 35.0-45.0 4544-3) MCV (test code = 91.4 fL 80.0-100.0 787-2) MCH (test code = 30.1 pg 27.0-33.0 785-6) MCHC (test code 33.0 g/dL 32.0-36.0 = 786-4) RDW (test code = 12.5 % 11.0-15.0 788-0) Platelet count 196 See_Comment [Automated (test code = message] The 777-3) system which generated this result transmit bj reference range : 140 - 400 Thousand/uL. Th e reference range was not used to interpret this result as normal/abnormal . MPV (test code = 11.7 fL 7.5-12.5 776-5) STACY (test code = FASTING:YES FASTING: STACY) YES RAC (test code = Performing RAC) Organization Information: Site ID: [place] [facility] Address: [address] [place] [phone] [facility] [id number] 18:30:00 Test Item Value Reference Range Interpretation Comments Sedimentation rate 2 mm/h See_Comment [Automat ed (test code = 4537-7) message ] The system which generated this result transmitted reference range : < OR = 30. The reference range was not used to interpret this result as normal/abnormal . STACY (test code = FASTING:YES STACY) FASTING: YES RAC (test code = Performing RAC) Organization Information: Site ID: [facility]GA [facility] Address: [address] [place] [phone] Director: [facility]ronVitamin D 25 hydroxy [id number] 18:30:00 Test Item Value Reference Range Interpretation Comments Vitamin D, 39 ng/mL 30-100 Vitamin D Statu s 25-hydroxy (test 25-OH Vitam in D: code = 1988-) Deficiency: <20 ng/mLInsufficie ncy : 20 - 29 ng/mLOptimal: > or = 30 ng/mL For 25-OH Vitamin D testing on patients on D2-supplementat ion and patients fo r whom quantitati on of D2 and D3 fractions is required, the QuestAssureD(TM )25 -OH VIT D, (D2,D3), LC/MS/ MS is recommended: order code 9288 8 (patients >2yrs).See Note 1 Note 1 For additional information, please refer to http://educatio n.Q uestDiagnostics .co m/faq/FGY291 (T his link is being provided for informational/e regulo ational purpose s only.) STACY (test code = FASTING:YES FASTING: STACY) YES RAC (test code = Performing RAC) Organization Information: Site ID: [facility]GA [facility] Address: [address] [place] [phone] Director: [facility]ronComprehensive metabolic [id number] 18:30:00 Test Item Value Reference Range Interpretation Comments Glucose (test code 68 mg/dL 65-99 Fasting = 2345-7) reference interval BUN (test code = 18 mg/dL 7-25 3094-0) Creatinine (test 0.70 mg/dL 0.50-1.05 code = 2160-0) eGFR (test code = 97 See_Comment The eGFR i s based 47867-8) on the CKD-EPI 2020 equation. To calculate the n ew eGFR from a previous Creatinine or Cystatin Cresul t, go to https://www.kid ne y.org/profsaa na sofia/kdoqi/gfr%5F ca lculator [Automated message] The system which generated this result transmitted reference range : > OR = 60 mL/min/1.73m2. The reference range was not used to interpr et this result as normal/abnormal . BUN/creatinine NOT APPLICABLE See_Comment [Automated ratio (test code = message] The 3096-09) system which generated this result transmitted reference range : 6 - 22 (calc). The reference range was not used to interpr et this result as normal/abnormal . Sodium (test code 141 mmol/L 135-146 = 2951-2) Potassium (test 4.1 mmol/L 3.5-5.3 code = 2823-3) Chloride (test 104 mmol/L 98-110 code = 2075-0) CO2 (test code = 32 mmol/L 20-32 2028-03) Calcium (test code 9.4 mg/dL 8.6-10.4 = 40836-1) Protein (test code 6.4 g/dL 6.1-8.1 = 2885-2) Albumin, S (test 4.1 g/dL 3.6-5.1 code = 1751-7) Globulin, total 2.3 See_Comment [Automated (test code = message] The 98370-8) system which generated this result transmitted reference range : 1.9 - 3.7 g/dL (calc). The reference range was not used to interpret this result as normal/abnormal . Albumin/globulin 1.8 See_Comment [Automated ratio (test code = message] The ) system which generated this result transmitted reference range : 1.0 - 2.5 (calc ). The reference range was not used to interpr et this result as normal/abnormal . Total bilirubin 0.6 mg/dL 0.2-1.2 (test code = 1974-2) Alkaline 74 U/L 37-153 phosphatase (test code = 7735-6) AST (test code = 19 U/L 10-35 1920-8) ALT (test code = 15 U/L 6-29 1742-6) STACY (test code = FASTING:YES STACY) FASTING: YES RAC (test code = Performing RAC) Organization Information: Site ID: [facility] [facility] Address: [address] [place] [phone] Director: [place] Chadwick ManleyFranklinCoshocton Regional Medical CenterVitamin B12 [id number] 18:30:00 Test Item Value Reference Interpretation Comments Range Vitamin B12 382 pg/mL 200-1100 Please Note: A lthough the (test code = reference range for 2132-03) [id number] is 2 00-1100 pg/mL, it has b een reported that between5 a nd 10% of patients with v alues between 200 and 400pg/m L may experience neur opsychiatric and hematologic abnormalities due to occult B 12 deficiency; les s than 1%of patients with v alues above 400 pg/mL will have symptoms. STACY (test FASTING:YES code = STACY) FASTING: YES RAC (test Performing code = RAC) Organization Information: Site ID: [place] [facility]: [facility] Address: [address] [place] [phone] Director: Herman McnamaraTogus [facility] Medical CenterFerritin [id number] 18:30:00 Test Item Value Reference Range Interpretation Comments Ferritin level (test 12 ng/mL 16-288 L code = 2276-4) STACY (test code = STACY) FASTING:YES FASTING: YES RAC (test code = RAC) Performing Organization Information: Site ID: [facility] Name: [facility] Address: [address] [place] [phone] Director: Herman Rodriguez Lab Interpretation (test Abnormal code = 98479-5) [facility]-reactive [id number] 18:30:00 Test Item Value Reference Range Interpretation Comments CRP (test code = 0.3 mg/L <=8.0 1987-5) STACY (test code = FASTING:YES FASTING: YES STACY) RAC (test code = Performing Organization RAC) Information: Site ID: RGA [facility]: [facility] Address: [address] [place] [address] [place] [address] Director: Herman Rodriguez [facility] [id number] 18:30:00 Test Item Value Reference Range Interpretation Comments WBC (test code = 6.1 See_Comment [Automated 6690-2) message] The system which generated this result transmit bj reference range : 3.8 - 10.8 Thousand/uL. Th e reference range was not used to interpret this result as normal/abnormal . RBC (test code = 4.05 See_Comment [Automated 789-8) message] The system which generated this result transmit bj reference range : 3.80 - 5.10 Million/uL. The reference range was not used to interpret this result as normal/abnormal . HGB (test code = 12.2 g/dL 11.7-15.5 718-7) HCT (test code = 37.0 % 35.0-45.0 4544-3) MCV (test code = 91.4 fL 80.0-100.0 787-2) MCH (test code = 30.1 pg 27.0-33.0 785-6) MCHC (test code 33.0 g/dL 32.0-36.0 = 786-4) RDW (test code = 12.5 % 11.0-15.0 788-0) Platelet count 196 See_Comment [Automated (test code = message] The 777-3) system which generated this result transmit bj reference range : 140 - 400 Thousand/uL. Th e reference range was not used to interpret this result as normal/abnormal . MPV (test code = 11.7 fL 7.5-12.5 776-5) STACY (test code = FASTING:YES FASTING: STACY) YES RAC (test code = Performing RAC) Organization Information: Site ID: [facility] Address: [address] [place] [phone] Director: Herman Rodriguez [facility] [id number] 18:30:00 Test Item Value Reference Range Interpretation Comments Sedimentation rate 2 mm/h See_Comment [Automat ed (test code = 4537-7) message ] The system which generated this result transmitted reference range : < OR = 30. The reference range was not used to interpret this result as normal/abnormal . STACY (test code = FASTING:YES STACY) FASTING: YES RAC (test code = Performing RAC) Organization Information: Site ID: [place] [facility] Address: [address] [place] [phone] Director: [place] Chadwick [facility] AndersonVitamin D 25 hydroxy [id number] 18:30:00 Test Item Value Reference Range Interpretation Comments Vitamin D, 39 ng/mL 30-100 Vitamin D Statu s 25-hydroxy (test 25-OH Vitam in D: code = 1988-) Deficiency: < 20 ng/mLInsufficie ncy : 20 - 29 ng/mLOptimal: > or = 30 ng/mL For 25-OH Vitamin D testing on patients on D2-supplementat ion and patients fo r whom quantitati on of D2 and D3 fractions is required, the QuestAssureD(TM )25 -OH VIT D, (D2,D3), LC/MS/ MS is recommended: order code 9288 8 (patients >2yrs).See Note 1 Note 1 For additional information, please refer to http://educatio n.Q uestDiagnostics .co m/faq/EBQ275 (T his link is being provided for informational/e regulo ational purpose s only.) STACY (test code = FASTING:YES FASTING: STACY) YES RAC (test code = Performing RAC) Organization Information: Site ID: [place] [facility] Address: [address] [place] [phone] Director: [facility]ronTotal iron binding [id number] 18:30:00 Test Item Value Reference Range Interpretation Comments Iron level (test 95 See_Comment [Automated code = 2498-4) message] The system which generated this result transmit bj reference range : 45 - 160 mcg/dL . The reference range was not u sed to interpret th is result as normal/abnormal . Iron binding 331 See_Comment [Automated capacity (test message] The code = 2500-7) system which generated this result transmit bj reference range : 250 - 450 mcg/d L (calc). The reference range was not used to interpret this result as normal/abnormal . Iron saturation 29 See_Comment [Automated (test code = message] The 2502-3[employer] system which generated this result transmit bj reference range : 16 - 45 % (calc ). The reference range was not u sed to interpret th is result as normal/abnormal . STACY (test code = FASTING:YES STACY) FASTING: YES RAC (test code = Performing RAC) Organization Information: Site ID: [facility] Address: [address] [place] [phone] Director: Herman Rodriguez [facility]
[2022-11-27] MEDS ORDERED: HYDROCODONE/APAP 5/325 MG TAB ONE (14:40)
[2022-11-27] MEDS ORDERED: IBUPROFEN 400 MG TAB ONE (14:40)
[2022-11-27] MEDS ORDERED: NA CHLORIDE 0.9% 1,000 ML ONE (14:41)
[2022-11-27] MEDS ORDERED: KETOROLAC 30 MG/ML INJ ONE (14:41)
--- NOTE | 2022-11-27 14:56 | RAD REPORT ---
EXAM DESCRIPTION: RAD - Chest Pa And Lat (2 Views) - 11/27/2022 2:50 pm CLINICAL HISTORY: COUGH Chest pain. COMPARISON: CHEST PA AND LAT 2 VIEW dated 09/20/2013; CHEST PA AND LAT 2 VIEW dated 10/05/2009; CHEST PA AND LAT 2 VIEW dated 12/24/2007 TECHNIQUE: PA and lateral views of the chest were obtained. FINDINGS: The lungs are hyperexpanded compatible with COPD. The heart is upper limit of normal in si ze. No fracture or aggressive bony process. IMPRESSION: COPD without acute process identified. The USPSTF recommends annual screening for lung cancer with low-dose CT (LDCT) in adults aged 50 to 80 years who have a 20 pack-year smoking history and currently smoke or have quit within the past 15 years.
[2022-11-27 14:58] LABS: Specific Gravity 1.019 (1.005-1.030); Urine Bacteria None Seen /HPF (<20); Urine Bilirubin NEGATIVE (Negative); Urine Blood Trace (Negative); Urine Clarity Clear (Clear); Urine Color Yellow (Yellow); Urine Glucose NEGATIVE (Negative); Urine Mucus Slight /HPF (None Seen); Urine Protein 1+ (Negative); Urine RBC <5 /HPF (None Seen); Urine Urobilinogen 1+ (Normal); Urine pH 7.5 (5.0-7.0)
[2022-11-27 15:26] LABS: Absolute Lymphocytes (CBC) 0.8 K/uL (0.7-4.9); Hematocrit 37.1 % (36.0-45.0); Lymphocytes % 6.4 % (15.3-44.8); MCV 90.4 fL (80-100); MPV 9.2 fL (7.6-11.3)
[2022-11-27 15:31] LABS: Protime INR 1.05
[2022-11-27 15:36] LABS: SARS-CoV-2 Antigen Rapid Res Negative (Negative)
[2022-11-27 15:51] LABS: Albumin 3.5 g/dL (3.4-5.0); Bilirubin Total 0.6 mg/dL (0.2-1.0); C-Reactive Protein 51.6 mg/L (<3.00); Potassium 3.3 mEq/L (3.5-5.1); Protein, Total 7.5 g/dL (6.4-8.2); Thyroid Stimulating Hormone 1.72 uIU/mL (0.358-3.740)
[2022-11-27] MEDS ORDERED: Levofloxacin500mg IV 500 MG/100 ML BAG IV ONE (16:51)
--- NOTE | 2022-11-27 16:58 | RAD REPORT ---
EXAM DESCRIPTION: CT - Chest Abdomen Pelvis W Cont - 11/27/2022 4:29 pm CLINICAL HISTORY: Chest and abdomen pain. FEVER COMPARISON: <Comparisons> TECHNIQUE: Approximately 100 mL nonionic IV contrast was administered to the patient. All CT scans are performed using dose optimization technique as appropriate and may include automated exposure control or mA/KV adjustment according to patient size. FINDINGS: The lungs are clear.Mild atelectasis in both lung bases.No pleural or pericardial effusion .No intrathoracic adenopathy. The liver, spleen, pancreas, adrenal glands and kidneys are within normal limits. Cholelithiasis. The right ureter appears enhancing. No bowel obstruction, free air, free fluid or abscess. Normal appendix. Mild wall thickening of the r ectum with mild surrounding inflammation in the perirectal fat. 5 mm perirectal lymph nodes seen. No worrisome osseous finding. IMPRESSION: Mild wall thickening and inflammation in the rectum with adjacent 5 mm perirectal lymph node.Colonoscopy would be recommended for direct visualization. Mild enhancement of the right ureter may indicate urinary tract infection. Correlation with urinalysi s suggested. Cholelithiasis.
--- NOTE | 2022-11-27 17:41 | ER ---
Nurse's Notes [facility] Name: Mari Amador Age: 62 yrs Sex: Female : 1960 Arrival Date: 11/27/2022 Time: 13:46 Bed 19 Private MD: Diagnosis: UTI/ Urinary tract infection, site not specified;Colitis, rectal wall edema;Fever presenting with conditions classified elsewhere Presentation: 11/27 14:12 Chief complaint: Patient states: fever, chills started today. She had a colonoscopy 2-3 iw months ago and was told her rectum was flared up m has changed her diet. is having lower back pain, and she has had rectal bleeding since then, she is on steroids , + diarrhea with mucous, denies urinary s/s. Coronavirus screen: Client presents with at least one sign or symptom that may indicate coronavirus-19. Ebola Screen: Patient negative for fever greater than or equal to 101.5 degrees Fahrenheit, and additional compatible Ebola Virus Disease symptoms Patient denies exposure to infectious person. Patient denies travel to an Ebola-affected area in the 21 days before illness onset. No symptoms or risks identified at this time. Initial Sepsis Screen: Does the patient meet any 2 criteria? Temp <36.0*C (96.8*F)) or > 38.3*C (100.9*F). HR > 90 bpm. Does the patient have a suspected source of infection? Yes:. Risk Assessment: Do you want to hurt yourself or someone else? Patient reports no desire to harm self or others. Onset of symptoms was November 27, 2022. 14:12 Method Of Arrival: Ambulatory iw 14:12 Acuity: JESSICA 3 iw Historical: - Allergies: 14:15 Sulfa (Sulfonamide Antibiotics); iw - Home Meds: 15:53 levothyroxine 100 mcg tablet twice weekly [Active]; D3 [Active]; atorvastatin 80 mg vg1 oral tablet daily [Active]; levothyroxine 88 mcg tablet 1 Tab Five Days a Week [Active]; lamotrigine 25 mg oral tablet at Bedtime [Active]; - PMHx: 14:15 Colitis; Hypothyroidism; iw - PSHx: 14:15 stomach; left shoulder; iw - Immunization history:: Adult Immunizations up to date. - Social history:: Smoking status: Patient/guardian denies using tobacco, the patient reports quitting approximately 14 years ago. Screenin:29 [facility] ED Fall Risk Assessment (Adult) History of falling in the last 3 months, vg1 including since admission No falls in past 3 months (0 pts). Abuse screen: Denies threats or abuse. Denies injuries from another. Nutritional screening: No deficits noted. Tuberculosis screening: No symptoms or risk factors identified. Assessment: 14:29 General: Appears in no apparent distress. uncomfortable. Pain: Complains of pain in vg1 lower back and RUQ Pain currently is 8 out of 10 on a pain scale. Neuro: Level of Consciousness is awake, alert, obeys commands, Oriented to person, place, time, situation, Moves all extremities. Cardiovascular: Patient's skin is warm and dry. Respiratory: Airway is patent Respiratory effort is even, unlabored. GI: Reports rectal bleeding, since x 2 months. : No signs and/or symptoms were reported regarding the genitourinary system. Derm: Skin is pink, warm \T\ dry. Musculoskeletal: Circulation, motion, and sensation intact. 15:24 Reassessment: Patient appears in no apparent distress at this time. No changes from vg1 previously documented assessment. Patient and/or family updated on plan of care and expected duration. Pain level reassessed. Patient is alert, oriented x 3, equal unlabored respirations, skin warm/dry/pink. 16:26 Reassessment: Patient appears in no apparent distress at this time. No changes from vg1 previously documented assessment. Patient and/or family updated on plan of care and expected duration. Pain level reassessed. Patient is alert, oriented x 3, equal unlabored respirations, skin warm/dry/pink. Vital Signs: 14:12 BP 129 / 66; Pulse 117; Resp 19; Temp 103(O); Pulse Ox 100% ; Weight 64.41 kg; Height 5 iw ft. 5 in. ; Pain 8/10; 15:09 BP 145 / 73; Pulse 112; Resp 25; Temp 102.3; Pulse Ox 97% on R/A; mm9 15:24 BP 145 / 73; Pulse 102; Resp 20; Pulse Ox 98% on R/A; vg1 16:15 BP 121 / 65; Pulse 99; Resp 16; Temp 100.7; Pulse Ox 97% on R/A; vg1 17:30 BP 109 / 88; Pulse 111; Resp 22; Pulse Ox 97% on R/A; vg1 18:24 BP 118 / 70; Pulse 96; Resp 20; Temp 98.3(O); Pulse Ox 97% on R/A; vg1 14:12 Body Mass Index 23.63 (64.41 kg, 165.1 cm) iw 14:12 Pain Scale: Adult iw ED Course: 13:47 Patient arrived in ED. rg4 14:15 Triage completed. iw 14:16 Moni Batista FNP-C is PHCP. snw 14:16 Fidencio Cavanaugh MD is Attending Physician. snw 14:17 Arm band placed on. iw 14:18 Demetrice Le, RN is Primary Nurse. vg1 14:29 Patient has correct armband on for positive identification. Placed in gown. Bed in low vg1 position. Call light in reach. Side rails up X 1. Adult w/ patient. Client placed on continuous cardiac and pulse oximetry monitoring. NIBP monitoring applied. 14:52 XRAY Chest Pa And Lat (2 Views) In Process Unspecified. EDMS 14:52 Warm blanket given. Client placed on continuous cardiac and pulse oximetry monitoring. mm9 NIBP monitoring applied. front desk monitor on. Pulse ox on. NIBP on. 14:52 Urinalysis w/ reflexes Sent. mm9 14:52 Urine collected: clean catch specimen, clear, EKG done, by ED staff, reviewed by Fidencio Cavanaugh MD. 15:00 Initial lab(s) drawn, by ED staff, sent to lab. First set of blood cultures drawn COVID mm9 swab sent to lab. Flu and/or RSV swab sent to lab. 15:00 Inserted saline lock: 20 gauge in right antecubital area, using aseptic technique. vg1 Blood collected. 15:00 First set of blood cultures drawn by me. vg1 15:08 Blood Culture Adult (2) Sent. mm9 15:08 Urine Culture Sent. mm9 15:15 Second set of blood cultures drawn by ED staff. vg1 15:23 Flu Sent. vg1 15:23 SARS RAPID Sent. vg1 16:31 CT Chest, Abdomen, Pelvis - W/Contrast In Process Unspecified. EDMS 18:26 No provider procedures requiring assistance completed. IV discontinued, intact, vg1 bleeding controlled, No redness/swelling at site. Pressure dressing applied. Administered Medications: 15:00 Drug: NS 0.9% IV 1000 ml Route: IV; Rate: 1 bolus; Site: right antecubital; vg1 15:01 Drug: Ketorolac IVP 15 mg Route: IVP; Site: right antecubital; vg1 15:22 Drug: Ibuprofen PO 400 mg Route: PO; vg1 15:22 Drug: HYDROcodone-acetaminophen PO 5 mg-325 mg 1 tabs Route: PO; vg1 16:50 Drug: levofloxacin IVPB 500 mg Volume: 100 ml; Route: IVPB; Infused Over: 60 mins; vg1 Site: right antecubital; Medication: 14:29 VIS not applicable for this client. vg1 Outcome: 17:41 Discharge ordered by . snw 18:26 Discharged to home ambulatory, with family. vg1 18:26 Condition: good 18:26 Discharge instructions given to patient, family, Instructed on discharge instructions, follow up and referral plans. medication usage, Demonstrated understanding of instructions, follow-up care, medications, Prescriptions given X 2. 18:27 Patient left the ED. vg1 Signatures: Dispatcher [employer] EDMS Moni Batista, SIMULATION EDUCATOR-C SIMULATION EDUCATOR-Csnw Lily Saez, RN Eneida Cody4 Demetrice Le RN RN jun1 Delicia Moore mm9 Corrections: (The following items were deleted from the chart) 14:17 14:15 Social history: Smoking status: [facility] 15:59 14:15 Home Meds: atorvastatin 80 mg oral tablet once; [facility] 15:59 14:15 Home Meds: Effexor XR Oral; [facility] 15:59 15:53 Home Meds: levothyroxine oral; vg1 vg1
--- NOTE | 2022-11-27 17:41 | EDPHYS ---
Physician Documentation [facility] Name: Mari Amador Age: 62 yrs Sex: Female : 1960 Arrival Date: 11/27/2022 Time: 13:46 Bed 19 Private MD: ED Physician Fidencio Cavanaugh HPI: 11/27 14:30 This 62 yrs old Female presents to ER via Ambulatory with complaints of Rectal snw Bleeding, Fever. 14:30 The patient presents to the emergency department with bleeding from the rectum/anus, snw that is moderate. Onset: The symptoms/episode began/occurred pt states she has persistent rectal bleeding worsening in severity in interval, colonoscopy 2 months ago, edema to rectal wall per report. Pt was taken off Remicade and she has had worsening of pain, melena since. Began with 103 fever today.. as noted, sees Rheumatology in [facility]. Historical: - Allergies: 14:15 Sulfa (Sulfonamide Antibiotics); iw - Home Meds: 15:53 levothyroxine 100 mcg tablet twice weekly [Active]; D3 [Active]; atorvastatin 80 mg vg1 oral tablet daily [Active]; levothyroxine 88 mcg tablet 1 Tab Five Days a Week [Active]; lamotrigine 25 mg oral tablet at Bedtime [Active]; - PMHx: 14:15 Colitis; Hypothyroidism; iw - PSHx: 14:15 stomach; left shoulder; iw - Immunization history:: Adult Immunizations up to date. - Social history:: Smoking status: Patient/guardian denies using tobacco, the patient reports quitting approximately 14 years ago. ROS: 14:29 Eyes: Negative for injury, pain, redness, and discharge, ENT: Negative for injury, snw pain, and discharge, Neck: Negative for injury, pain, and swelling, Cardiovascular: Negative for chest pain, palpitations, and edema, Respiratory: Negative for shortness of breath, cough, wheezing, and pleuritic chest pain, : Negative for injury, bleeding, discharge, and swelling, MS/Extremity: Negative for injury and deformity, Skin: Negative for injury, rash, and discoloration, Neuro: Negative for headache, weakness, numbness, tingling, and seizure, Psych: Negative for depression, anxiety, suicide ideation, homicidal ideation, and hallucinations. 14:29 Constitutional: Positive for body aches, chills, fever, malaise, poor PO intake. 14:29 Abdomen/GI: Positive for abdominal pain, rectal pain, rectal bleeding, of the right upper quadrant and right lower quadrant. 14:29 Back: Positive for pain at rest, pain with movement. Exam: 14:28 Head/Face: Normocephalic, atraumatic. Eyes: Pupils equal round and reactive to light, snw extra-ocular motions intact. Lids and lashes normal. Conjunctiva and sclera are non-icteric and not injected. Cornea within normal limits. Periorbital areas with no swelling, redness, or edema. ENT: Nares patent. No nasal discharge, no septal abnormalities noted. Tympanic membranes are normal and external auditory canals are clear. Oropharynx with no redness, swelling, or masses, exudates, or evidence of obstruction, uvula midline. Mucous membranes moist. Neck: Trachea midline, no thyromegaly or masses palpated, and no cervical lymphadenopathy. Supple, full range of motion without nuchal rigidity, or vertebral point tenderness. No Meningismus. Chest/axilla: Normal chest wall appearance and motion. Nontender with no deformity. No lesions are appreciated. 14:28 Respiratory: Lungs have equal breath sounds bilaterally, clear to auscultation and percussion. No rales, rhonchi or wheezes noted. No increased work of breathing, no retractions or nasal flaring. Skin: Warm, dry with normal turgor. Normal color with no rashes, no lesions, and no evidence of cellulitis. MS/ Extremity: Pulses equal, no cyanosis. Neurovascular intact. Full, normal range of motion. Neuro: Awake and alert, GCS 15, oriented to person, place, time, and situation. Cranial nerves II-XII grossly intact. Motor strength 5/5 in all extremities. Sensory grossly intact. Cerebellar exam normal. Normal gait. Psych: Awake, alert, with orientation to person, place and time. Behavior, mood, and affect are within normal limits. 14:28 Constitutional: The patient appears alert, awake, febrile, uncomfortable. 14:28 Cardiovascular: Rate: tachycardic, Rhythm: regular, Heart sounds: normal. 14:28 Abdomen/GI: Inspection: abdomen appears normal, Bowel sounds: active, all quadrants, Palpation: mild abdominal tenderness, in the right upper quadrant and right lower quadrant, Rectal exam: rectal tone normal, hemorrhoid(s), are not appreciated, tenderness, that is mild. 14:28 Back: pain, that is moderate, of the low back area. Vital Signs: 14:12 BP 129 / 66; Pulse 117; Resp 19; Temp 103(O); Pulse Ox 100% ; Weight 64.41 kg; Height 5 iw ft. 5 in. ; Pain 8/10; 15:09 BP 145 / 73; Pulse 112; Resp 25; Temp 102.3; Pulse Ox 97% on R/A; mm9 15:24 BP 145 / 73; Pulse 102; Resp 20; Pulse Ox 98% on R/A; vg1 16:15 BP 121 / 65; Pulse 99; Resp 16; Temp 100.7; Pulse Ox 97% on R/A; vg1 17:30 BP 109 / 88; Pulse 111; Resp 22; Pulse Ox 97% on R/A; vg1 18:24 BP 118 / 70; Pulse 96; Resp 20; Temp 98.3(O); Pulse Ox 97% on R/A; vg1 14:12 Body Mass Index 23.63 (64.41 kg, 165.1 cm) iw 14:12 Pain Scale: Adult iw MDM: 14:25 Patient medically screened. snw 17:31 Differential diagnosis: abscess, Rectal CA, UTI, Pyelonephritis. Data reviewed: vital snw signs, nurses notes, lab test result(s), EKG, radiologic studies. I considered the following discharge prescriptions or medication management in the emergency department Medications were administered in the Emergency Department. See MAR. Historians other than the Patient: Spouse/Significant Other: . Care significantly affected by the following chronic conditions: Colitis, autoimmune problems. Counseling: I had a detailed discussion with the patient and/or guardian regarding: the historical points, exam findings, and any diagnostic results supporting the discharge/admit diagnosis, lab results, radiology results, the need for outpatient follow up, for definitive care, to return to the emergency department if symptoms worsen or persist or if there are any questions or concerns that arise at home. Response to treatment: the patient's symptoms have markedly improved after treatment. Special discussion: Based on the patient's Hx, exam, and Dx evaluation, there is no indication for emergent surgery or inpatient Tx. It is understood by the patient/guardian that if the Sx's persist or worsen they need to return immediately for re-evaluation. Based on the history and exam findings, there is no indication for further emergent testing or inpatient evaluation. I discussed with the patient/guardian the need to see the lock master for further evaluation of the symptoms. I discussed with the patient/guardian the need to see the primary care provider for further evaluation of the symptoms. 11/27 14:18 Order name: CBC with Diff; Complete Time: 16:00 replaced by [facility] 11/27 14:18 Order name: CMP; Complete Time: 16:00 replaced by [facility] 11/27 14:18 Order name: Lipase; Complete Time: 16:00 replaced by [facility] 11/27 14:18 Order name: Urinalysis w/ reflexes; Complete Time: 16:00 replaced by [facility] 11/27 14:18 Order name: Blood Culture Adult (2) replaced by [facility] 11/27 14:18 Order name: Lactate w/ 2H reflex if indic.; Complete Time: 16:00 replaced by [facility] 11/27 14:18 Order name: Protime (+inr); Complete Time: 16:00 replaced by [facility] 11/27 14:18 Order name: Ptt, Activated; Complete Time: 16:00 replaced by [facility] 11/27 14:18 Order name: TSH; Complete Time: 16:00 replaced by [facility] 11/27 14:18 Order name: Flu; Complete Time: 16:00 replaced by [facility] 11/27 14:18 Order name: SARS RAPID; Complete Time: 16:00 replaced by [facility] 11/27 14:20 Order name: CRP; Complete Time: 16:00 [facility] 11/27 15:06 Order name: Urine Culture [facility] 11/27 14:20 Order name: XRAY Chest Pa And Lat (2 Views); Complete Time: 14:59 [facility] 11/27 15:00 Order name: CT Chest, Abdomen, Pelvis - W/Contrast; Complete Time: 16:59 snw 11/27 14:18 Order name: EKG; Complete Time: 14:19 w 11/27 14:18 Order name: IV Saline Lock; Complete Time: 15:22 snw 11/27 14:18 Order name: Labs collected and sent; Complete Time: 15:23 replaced by [facility] 11/27 14:18 Order name: Accucheck; Complete Time: 14:47 snw 05/21 14:18 Order name: Cardiac monitoring; Complete Time: 14:47 snw 11/27 14:18 Order name: EKG - Nurse/Tech; Complete Time: 14:47 snw 11/27 14:18 Order name: IV Saline Lock - Large Bore; Complete Time: 15:23 snw 11/27 14:18 Order name: O2 Per Protocol; Complete Time: 14:29 snw 11/27 14:18 Order name: O2 Sat Monitoring; Complete Time: 14:29 snw 11/27 14:18 Order name: Vital Signs; Complete Time: 14:29 snw 11/27 14:33 Order name: Misc. Order: Please verify home medications... including biologics; snw Complete Time: 15:59 EC:45 Rate is 105 beats/min. Rhythm is regular. QRS [place] is Normal. RI interval is normal. snw QRS interval is prolonged. Clinical impression: Sinus tachycardia. Administered Medications: 15:00 Drug: NS 0.9% IV 1000 ml Route: IV; Rate: 1 bolus; Site: right antecubital; vg1 15:01 Drug: Ketorolac IVP 15 mg Route: IVP; Site: right antecubital; vg1 15:22 Drug: Ibuprofen PO 400 mg Route: PO; vg1 15:22 Drug: HYDROcodone-acetaminophen PO 5 mg-325 mg 1 tabs Route: PO; vg1 16:50 Drug: levofloxacin IVPB 500 mg Volume: 100 ml; Route: IVPB; Infused Over: 60 mins; vg1 Site: right antecubital; Disposition Summary: 11/27/22 17:41 Discharge Ordered Location: Home snw Condition: Stable snw Diagnosis - UTI/ Urinary tract infection, site not specified snw - Colitis, rectal wall edema snw - Fever presenting with conditions classified elsewhere snw Followup: snw - With: Emergency Department - When: As needed - Reason: Worsening of condition Followup: snw - With: Private Physician - When: 1 - 2 days - Reason: Recheck today's complaints, Continuance of care, Re-evaluation by your physician Discharge Instructions: - Discharge Summary Sheet snw - Fever, Adult snw - Urinary Tract Infection, Adult snw - Rehydration, Elderly snw - Colitis snw Forms: - Medication Reconciliation Form snw - Thank You Letter snw - Antibiotic Education snw - Prescription Opioid Use snw Prescriptions: - Augmentin 875-125 mg Oral Tablet - take 1 tablet by ORAL route every 12 hours for 10 days; 20 tablet; Refills: 0, snw Product Selection Permitted - Cipro 500 mg Oral Tablet - take 1 tablet by ORAL route every 12 hours for 10 days; 20 tablet; Refills: 0, snw Product Selection Permitted Signatures: Dispatcher [employer] EDOH Moni Batista, FULLERETTE-C FULLERETTE-Csnw Lily Saez RN ROGELIO Demetrice Le RN RN vg1 Corrections: (The following items were deleted from the chart) 14:17 14:15 Social history: Smoking status: [facility] 15:04 14:19 Abdomen Pelvis W Con+CT.RAD.BRZ ordered. [facility] 15:59 14:15 Home Meds: atorvastatin 80 mg oral tablet once; [facility] 15:59 14:15 Home Meds: Effexor XR Oral; [facility] 15:59 15:53 Home Meds: levothyroxine oral; 1 vg1
--- NOTE | 2022-11-28 15:23 | EKG ---
Test Date: 2022-11-27 Test Time: 14:43:51 Director [employer]icon[employer]: DANNY MEASUREMENT RESULTS: Intervals: Rate: 105 NE: 140 QRSD: 98 QT: 302 QTc: 399 Marissa: P: 36 NE: 140 QRS: -6 T: 38 INTERPRETIVE STATEMENTS: Sinus tachycardia Septal infarct, age undetermined Abnormal ECG Compared to ECG 12/24/2007 16:54:24 Myocardial infarct finding now present Sinus rhythm no longer present Electronically Signed On 11-28-22 15:21:51 CDT by Julien Villalobos
== END 2022-11-27 18:27 | disposition home or self-care (01) ==
LOC: ER 13:46
DX: N39.0 Urinary tract infection, site not specified (principal); K52.9 Noninfective gastroenteritis and colitis, unspecified; E03.9 Hypothyroidism, unspecified; Z20.822 Contact with and (suspected) exposure to COVID-19; Z88.2 Allergy status to sulfonamides
CPT/HCPCS: 93005 ×2; 87040 ×2; 87088; 85025; 81001; 87086; 36415; 85610; 83605; 85730; 84443; 83690; 80053; 86140; 87804 ×2; 71260; 74177; 71046; 87811; Q9967; J7030

== ENCOUNTER 2023-01-06 15:41 | Inpatient (IN) | payer BC ==
--- OUTSIDE RECORDS SUMMARY | 2023-01-06 15:45 | XMS REPORT | Continuity of Care Document ---
:1960 Author Organization [facility] t Address [address] [facility] [address] [place] [address] Care Team Providers Name Role Phone Ilda Calix MD, Severo Gibbs Primary Care Physician [phone] Loretta Pan MD Attending Clinician Antonette Muñoz LVN Attending Clinician Unavailable Sandy Polanco Attending Clinician Unavailable Shameka Schaefer MA Attending Clinician Unavailable Jaleesa Pinon MA Attending Clinician Unavailable Austen Eric PA-C Attending Clinician [phone] Fela Tai MA Attending Clinician Unavailable IVY GERARDO Attending Clinician Unavailable BRANDIE FABIAN Attending Clinician Unavailable Sandy Polanco Admitting Clinician Unavailable Payers Payer Name Policy Type Policy Number Effective Date Expiration Date Michael vee [facility] [id number] 2017 00:00:00 Problems This patient has no known problems. Allergies, Adverse Reactions, Alerts Allergy Allergy Status Severity Reaction(s) Onset Inactive Treating Comm ents Source Name Type Date Date Clinician Other Propensi Active Other (See 2018-0 Meth ariella ty to Comments) 8-03 st adverse 00:00: Hospita reaction 00 l s Sulfa Propensi Active Methodi (Sulfona ty to 07-12 st mide adverse 00:00: Hospita Antibiot reaction 00 l ics) s to drug NO KNOWN Drug Active [facility] ALLERGIE Class ity of [facility] Social History Social Habit Start Date Stop Date Quantity Comments Source Gender identity 2019-03-19 Identifies as Method ist 08:12:35 female gender Hospital (finding) Sexual orientation 2019-03-19 Heterosexual Meth [facility]ist 08:12:35 (finding) Hospital Cigarettes smoked 2022-12-29 2022-12-[address] current (pack per 00:00:00 00:00:00 Hospita l day) - Reported Cigarette 2022-12-29 2022-12-29 [facility] 00:00:00 00:00:00 Hospital Tobacco use and 2022-12-29 2022-12-29 Smokeless tobacco [facility] exposure 00:00:00 00:00:00 non-user Hospital Alcohol intake 2022-12-29 2022-12-29 Current drinker of [facility] 00:00:00 00:00:00 alcohol (finding) Hospita l History of Social 2022-12-29 2022-12-[address] function 00:00:00 00:00:00 Hospital History of tobacco 2016-07-10 Current smoker [facility] use 00:00:00 Hospital Sex Assigned At [address] [facility] Smoking Status Start Date Stop Date Source Ex-smoker 2022-12-29 00:00:00 2022-12-29 00:00:00 [facility] Medications Ordered Filled Start Stop Current Ordering Indication Dosage Frequency Signature Comments Components Source Medication Medication Date Date Medication? Clinician (SIG) Name Name inFLIXimab Yes Infuse Metho di 100 mg 12-[address] injection 13:09: venous Hospit a 00 catheter. l Infuse every 6 weeks venlafaxine Yes 150mg QD Take 1 Met hodi XR 6-[address] (EFFEXOR-XR 13:09: (150 mg Hos gunner ) 150 MG 24 00 total) by l hr capsule mouth daily. multivitami Yes 1{capsu QD Take 1 M ethodi n capsule 12-29 le} capsule by st 13:09: mouth Hospita 00 daily. l atorvastati Yes 80mg QD Take 1 Meth ariella n (LIPITOR) -22 tablet (80 st 80 MG 13:09: mg total) Hospita tablet 00 by mouth l daily. cholecalcif Yes 1000U QD Take 1 Met hodi brennan, 12-[address] vitamin D3, 13:09: (1,000 Hosp terri 1,000 unit 00 Units l tablet total) by mouth daily. mesalamine Yes 1{enema QD Insert 1 Methodi with 12-29 } enema into st cleansing 00:00: the rectum Ho spita wipe 00 nightly. l (Rowasa) 4 gram/60 mL enema kit lamoTRIgine Yes 50mg QD Take 2 Meth ariella (LaMICtal) -[address] 25 MG 00:00: (50 mg Hospita tablet 00 total) by l mouth nightly. predniSONE 2022- Yes Take 2 Meth ariella (DELTASONE) 5-10 06-[address] 10 mg 00:00: 04:59 (20 mg Hospita tablet 00 :00 total) by l mouth 2 (two) times a day for 7 days, THEN 3 tablets (30 mg total) daily for 7 days, THEN 2 tablets (20 mg total) daily for 7 days, THEN 1 tablet (10 mg total) daily for 7 days. predniSONE 2022- Yes Take 2 Meth ariella (DELTASONE) 5-10 06-[address] 10 mg 00:00: 04:59 (20 mg Hospita tablet 00 :00 total) by l mouth 2 (two) times a day for 7 days, THEN 3 tablets (30 mg total) daily for 7 days, THEN 2 tablets (20 mg total) daily for 7 days, THEN 1 tablet (10 mg total) daily for 7 days. predniSONE 2022- No Take 2 Meth ariella (DELTASONE) 5-10 06-[address] 10 mg 00:00: 04:59 (20 mg Hospita tablet 00 :00 total) by l mouth 2 (two) times a day for 7 days, THEN 3 tablets (30 mg total) daily for 7 days, THEN 2 tablets (20 mg total) daily for 7 days, THEN 1 tablet (10 mg total) daily for 7 days. mesalamine 0 Yes 1000mg QD Insert 1 M ethodi (Canasa) 4-[address] 1000 MG 00:00: y (1,000 Hospit a suppository 00 mg total) l into the rectum nightly. mesalamine 2022-0 Yes 1000mg QD Insert 1 M ethodi (Canasa) 4-[address] 1000 MG 00:00: y (1,000 Hospit a suppository 00 mg total) l into the rectum nightly. mesalamine 2022-0 Yes 1000mg QD Insert 1 M ethodi (Canasa) 4-[address] 1000 MG 00:00: y (1,000 Hospit a suppository 00 mg total) l into the rectum nightly. levothyroxi Yes TAKE ONE [facility] ne 12 (1) st (SYNTHROID) 00:00: TABLET(S) H ospita 88 mcg 00 BY MOUTH l tablet FIVE TIMES WEEKLY FOR THYROID. predniSONE 2022- No Take 2 Meth ariella (DELTASONE) 09-14-[address] 10 mg 00:00: 04:59 (20 mg Hospita tablet 00 :00 total) by l mouth 2 (two) times a day for 7 days, THEN 3 tablets (30 mg total) daily for 7 days, THEN 2 tablets (20 mg total) daily for 7 days, THEN 1 tablet (10 mg total) daily for 7 days. predniSONE 2022- No Take 2 Meth ariella (DELTASONE) 09-14-[address] 10 mg 00:00: 04:59 (20 mg Hospita tablet 00 :00 total) by l mouth 2 (two) times a day for 7 days, THEN 3 tablets (30 mg total) daily for 7 days, THEN 2 tablets (20 mg total) daily for 7 days, THEN 1 tablet (10 mg total) daily for 7 days. predniSONE 2022- No Take 2 Meth ariella (DELTASONE) 09-14-[address] 10 mg 00:00: 04:59 (20 mg Hospita tablet 00 :00 total) by l mouth 2 (two) times a day for 7 days, THEN 3 tablets (30 mg total) daily for 7 days, THEN 2 tablets (20 mg total) daily for 7 days, THEN 1 tablet (10 mg total) daily for 7 days. budesonide 2022- No Insert 1 Me thodi (Uceris) 2 09-[address] mg/actuatio 00:00: 04:59 ful into H ospita n foam 00 :00 the rectum l 2 (two) times a day for 7 days, THEN 1 Applicator ful daily for 30 days. budesonide 2022- No Insert 1 Me thodi (Uceris) 2 09-[address] mg/actuatio 00:00: 04:59 ful into H ospita n foam 00 :00 the rectum l 2 (two) times a day for 7 days, THEN 1 Applicator ful daily for 30 days. budesonide 2022- No Insert 1 Me thodi (Uceris) 2 09-[address] mg/actuatio 00:00: 04:59 ful into H ospita n foam 00 :00 the rectum l 2 (two) times a day for 7 days, THEN 1 Applicator ful daily for 30 days. sodium,pota Yes Drink 1 Met hodi ssium,mag 2-[address] sulfates 00:00: directed Hospi ta (Suprep 00 for dose 1 l Bowel Prep and 1 Kit) bottle as 17.5-3.13-1 directed .6 gram for dose recon soln 2. sodium,pota Yes Drink 1 Met hodi ssium,mag 2-[address] sulfates 00:00: directed Hospi ta (Suprep 00 for dose 1 l Bowel Prep and 1 Kit) bottle as 17.5-3.13-1 directed .6 gram for dose recon soln 2. sodium,pota 2022- No Drink 1 Me thodi ssium,mag 2-22 06-[address] sulfates 00:00: 00:00 directed Hosp terri (Suprep 00 :00 for dose 1 l Bowel Prep and [...] hr capsule EVERY DAY WITH FOOD. buPROPion 0 Yes 300mg QD Take 1 Metho di XL 1-[address] (WELLBUTRIN 00:00: (300 mg Hos gunner XL) 300 MG 00 total) by l 24 hr mouth tablet every morning. venlafaxine 0 Yes TAKE ONE Me thodi XR 1-05 (1) st (EFFEXOR-XR 00:00: CAPSULE(S) Hospita ) 75 MG 24 00 BY MOUTH l hr capsule EVERY DAY WITH FOOD. venlafaxine Yes TAKE ONE Me thodi XR 1-05 (1) st (EFFEXOR-XR 00:00: CAPSULE(S) Hospita ) 75 MG 24 00 BY MOUTH l hr capsule EVERY DAY WITH FOOD. buPROPion 0 2022- No 150mg QD Take 1 Meth ariella XL 1-05 06-[address] (WELLBUTRIN 00:00: 00:00 (300 mg Ho spita XL) 300 MG 00 :00 total) by l 24 hr mouth tablet every morning. inFLIXimab Yes Infuse Metho di 100 mg [...] 15:57: daily. Hospita tablet 59 l cholecalcif 0 Yes 1000U QD Take 1,000 Methodi brennan, 6-[address] vitamin D3, 15:57: mouth Hospi ta 1,000 unit 59 daily. l tablet inFLIXimab Yes Infuse Metho di 100 mg 6-[address] injection 15:57: venous Hospit a 59 catheter. l Infuse every 6 weeks venlafaxine Yes 150mg QD Take 150 M ethodi XR 6-[address] (EFFEXOR-XR 15:57: mouth Hospi ta ) 150 MG 24 59 daily. l hr capsule multivitami Yes 1{capsu QD Take 1 M ethodi n capsule 6-30 le} capsule by st 15:57: mouth Hospita 59 daily. l atorvastati Yes 80mg QD Take 80 mg Methodi n (LIPITOR) 6-[address] 80 MG 15:57: daily. Hospita tablet 59 l cholecalcif Yes 1000U QD Take 1,000 Methodi brennan, [...] Immunizations Ordered Immunization Filled Immunization Date Status Commen ts Source Name Name FLUCELVAX QUAD PF 2022-04-[address] 00:00:00 Hospital FLUCELVAX QUAD PF 2022-04-[address] 00:00:00 Hospital FLUCELVAX QUAD PF 2022-04-[address] 00:00:00 Hospital FLUCELVAX QUAD PF 2021-04-[address] 00:00:00 [facility] FLUCELVAX QUAD PF 2021-04-[address] 00:00:00 [facility] FLUCELVAX QUAD PF 2021-04-[address] 00:00:00 [facility] PFIZER COVID-19 MRNA 2020-07-22 Completed Meth [facility]ist VACCINATION 00:00:00 [facility] PFIZER COVID-19 MRNA 2020-07-22 Completed [facility] VACCINATION 00:00:00 Hospital PFIZER COVID-19 MRNA 2020-07-22 Completed [facility]ist VACCINATION 00:00:00 [facility] PFIZER COVID-19 MRNA 2020-07-01 Completed Meth odist VACCINATION 00:00:00 [facility] PFIZER COVID-19 MRNA 2020-07-01 Completed [facility]ist VACCINATION 00:00:00 Hospital PFIZER COVID-19 MRNA 2020-07-01 Completed Meth odist VACCINATION 00:00:00 Hospital FLUCELVAX QUAD PF 2020-05-[address] 00:00:00 Hospital FLUCELVAX QUAD PF 2020-05-[address] 00:00:00 Hospital FLUCELVAX QUAD PF 2020-05-[address] 00:00:00 Hospital Vital Signs Vital Name Observation Time Observation Value Comments Source Systolic blood 2022-12-29 17:59:00 113 mm[Hg] [facility] Hospital pressure Diastolic blood 2022-12-29 17:59:00 73 mm[Hg] [facility] Hospital pressure Heart rate 2022-12-29 17:59:00 99 /min [facility] Body height 2022-12-29 17:59:00 165.1 cm [facility] Body weight 2022-12-29 17:59:00 61.236 kg [facility] BMI 2022-12-29 17:59:00 22.47 kg/m2 [facility] Body height 2022-07-22 17:33:00 165.1 cm [facility] Body weight 2022-07-22 17:33:00 63.05 kg [facility] BMI 2022-07-22 17:33:00 23.13 kg/m2 [facility] Systolic blood 2022-01-06 20:56:00 122 mm[Hg] Method [facility] pressure Diastolic blood 2022-01-06 20:56:00 75 mm[Hg] [facility] pressure Heart rate 2022-01-06 20:56:00 76 /min [facility] Procedures Procedure Date / Time Performing Clinician Source Performed CBC HEMOGRAM 2022-12-26 21:26:00 Loretta Pan spital TOTAL IRON BINDING 2022-12-26 21:26:00 [facility] CAPACITY FERRITIN LEVEL 2022-12-26 21:26:00 [facility] FECAL CALPROTECTIN 2022-12-19 12:26:00 [facility] COLONOSCOPY-EXTERNAL MCE 2022-09-03 02:23:33 Loretta Pan [facility] SURGICAL PATHOLOGY 2022-09-02 20:55:00 [facility] REQUEST XR KNEE 4+ VW RIGHT 2022-07-22 17:05:05 Austen Eric [facility] [place] ARTHROCENTESIS 2022-07-22 16:30:00 Austen Eric [facility] ASPIR&/INJ MAJOR JT/BURSA W/O US CBC HEMOGRAM 2022-07-07 13:38:00 Loretta Pan spital COMPREHENSIVE METABOLIC 2022-07-07 13:38:00 Loretta Pan [facility] PANEL C-REACTIVE PROTEIN 2022-07-07 13:38:00 [facility] SEDIMENTATION RATE 2022-07-07 13:38:00 [facility] VITAMIN B12 LEVEL 2022-07-07 13:38:00 [facility] VITAMIN D 25 HYDROXY 2022-07-07 13:38:00 [facility] TOTAL IRON BINDING 2022-07-07 13:38:00 [facility] CAPACITY FERRITIN LEVEL 2022-07-07 13:38:00 [facility] of Care Planned Activity Planned Date Details Comments Source Future Scheduled 2023-01-06 Screening for [facility] Test 15:41:44 malignant neoplasm of colon (procedure) [code = 571510890] Future Scheduled 2023-01-06 Screening for [facility] Test 15:41:44 malignant neoplasm of colon (procedure) [code = 699308866] Future Scheduled 2023-01-06 Screening for [facility] Test 15:41:44 malignant neoplasm of colon (procedure) [code = 792872241] Future Scheduled 2023-01-06 Hepatitis C screening [facility] Test 15:41:44 (procedure) [code = 388606355] Future Scheduled 2023-01-06 Screening for [facility] Test 15:41:44 malignant neoplasm of cervix (procedure) [code = 040088040] Future Scheduled 2023-01-06 BREAST CANCER [facility] Test 15:41:44 SCREENING [code = BREAST CANCER SCREENING] Future Scheduled 2023-01-06 Screening for [facility] Test 15:41:44 malignant neoplasm of lung (procedure) [code = 031968041] Future Scheduled 2023-01-06 COVID-19 VACCINE (6 - Me [facility] [place] [place] Test 15:41:44 Booster for Pfizer series) [code = COVID-19 VACCINE (6 - Booster for Pfizer series)] Future Scheduled 2023-01-06 INFLUENZA VACCINE [facility] Test 15:41:44 [code = INFLUENZA VACCINE] Future Scheduled 2023-01-06 Screening for [facility] Test 15:41:44 malignant neoplasm of colon (procedure) [code = 632508984] Future Scheduled 2023-01-06 Screening for [facility] Test 15:41:44 malignant neoplasm of colon (procedure) [code = 001879205] Future Scheduled 2022-11-27 Hepatitis C screening [facility] Test 13:15:32 (procedure) [code = 168133111] Future Scheduled 2022-11-27 [facility] Test 13:15:32 malignant neoplasm of cervix (procedure) [code = 164519078] Future Scheduled 2022-11-27 [facility] Test 13:15:32 SCREENING [code = BREAST CANCER SCREENING] Future Scheduled 2022-11-27 [facility] Test 13:15:32 malignant neoplasm of lung (procedure) [code = 290233046] Future Scheduled 2022-11-27 COVID-19 VACCINE (6 - [facility] Test 13:15:32 Booster for Pfizer series) [code = COVID-19 VACCINE (6 - Booster for Pfizer series)] Future Scheduled 2022-11-27 INFLUENZA VACCINE [facility] Hospital Test 13:15:32 [code = INFLUENZA VACCINE] Future Scheduled 2022-11-27 COLONOSCOPY SCREENING [facility] Test 13:15:32 [code = COLONOSCOPY SCREENING] Future Scheduled 2022-11-21 [facility] 11:40:47 (procedure) [code = 568733926] Future Scheduled 2022-11-21 [facility] Test 11:40:47 malignant neoplasm of cervix (procedure) [code = 177673614] Future Scheduled 2022-11-21 BREAST CANCER [facility] Test 11:40:47 SCREENING [code = BREAST CANCER SCREENING] Future Scheduled 2022-11-21 [facility] Test 11:40:47 malignant neoplasm of lung (procedure) [code = 589058096] Future Scheduled 2022-11-21 COVID-19 VACCINE (6 - [facility] Test 11:40:47 Booster for Pfizer series) [code = COVID-19 VACCINE (6 - Booster for Pfizer series)] Future Scheduled 2022-11-21 INFLUENZA VACCINE Method [facility] Hospital Test 11:40:47 [code = INFLUENZA VACCINE] Future Scheduled 2022-11-21 COLONOSCOPY SCREENING [facility] Test 11:40:47 [code = COLONOSCOPY SCREENING] Encounters Start End Encounter Admission Attending Care Care Encounter Source Date/Time Date/Time Type Type Clinicians Facility Department ID 2022-12-29 2022-12-29 Ida Pan 1.2.840.1 [id number] Methodi 13:15:00 14:06:29 Visit Loretta Aguillon 15786.1.[address] 3.430.2.7 Hospit a .3.514628 l .8 2022-12-29 2022-12-29 Telephone Toni, 1.2.840.1 [id number] Methodi 00:00:00 00:00:[address] 3.430.2.7 Hospit a .3.113862 l .8 2022-12-29 2022-12-29 [facility] [id number] [place] [address] 00:00:00 00:00:00 LORETTA [address] 2022-12-28 2022-12-28 Telephone Toni, 1.2.840.1 [id number] Methodi 00:00:00 00:00:[address] 3.430.2.7 Hospit a .3.441646 l .8 2022-12-27 2022-12-27 Telephone Toni, 1.2.840.1 [id number] Methodi 00:00:00 00:00:[address] 3.430.2.7 Hospit a .3.198035 l .8 2022-11-28 2022-11-28 Telephone Toni, 1.2.840.1 [id number] 2 [id number] Methodi 00:00:00 00:00:[address] 3.430.2.7 Hospit a .3.144988 l .8 2022-11-18 2022-11-18 Outpatient JOAQUIN Polanco [id number] LTAC[facility] 12:00:00 12:00:[address] [place] [address] 2022-11-16 2022-11-16 [facility] 1.2.840.1 [id number] Methodi 00:00:00 00:00:00 Only Loretta L. [address]2563.1.[address] 3.430.2.7 Hospit a .3.686224 l .8 2022-11-16 2022-11-16 [facility], 1.2.840.1 [id number] Methodi 00:00:00 00:00:00 Only Loretta L. 62358.1.[address] 3.430.2.7 Hospit a .3.004816 l .8 2022-11-15 2022-11-15 [facility], 1.2.840.1 [id number] 2 [id number] Methodi 00:00:00 00:00:[address] 3.430.2.7 Hospit a .3.178391 l .8 2022-11-15 2022-11-15 [facility], 1.2.840.1 [id number] Methodi 00:00:00 00:00:00 ion Loretta L. 81710.1.[address] 3.430.2.7 Hospit a .3.739583 l .8 2022-11-15 2022-11-15 [facility], 1.2.840.1 [id number] Methodi 00:00:00 00:00:[address] 3.430.2.7 Hospit a .3.602339 l .8 2022-11-15 2022-11-15 [facility], 1.2.840.1 [id number] Methodi 00:00:00 00:00:00 ion Loretta L. 96654.1.[address] 3.430.2.7 Hospit a .3.350054 l .8 2022-10-20 2022-10-20 [facility], 1.2.840.1 [id number] Methodi 00:00:00 00:00:00 Only Loretta L. 27362.1.[address] 3.430.2.7 Hospit a .3.018496 l .8 2022-10-20 2022-10-20 Orders Pan, 1.2.840.1 [id number] Methodi 00:00:00 00:00:00 Only Loretta L. 63580.1.[address] 3.430.2.7 Hospit a .3.712266 l .8 2022-09-22 2022-09-22 Telephone Mason, 1.2.840.1 [id number] Methodi 00:00:00 00:00:[address] 3.430.2.7 Hospit a .3.324216 l .8 2022-09-22 2022-09-22 Telephone Mason, 1.2.840.1 [id number] Methodi 00:00:00 00:00:[address] 3.430.2.7 Hospit a .3.968981 l .8 2022-09-16 2022-09-16 Documentat Pan, 1.2.840.1 [id number] Methodi 00:00:00 00:00:00 ion Loretta L. 14699.1.[address] 3.430.2.7 Hospit a .3.036281 l .8 2022-09-16 2022-09-16 Documentat Pan, 1.2.840.1 [id number] Methodi 00:00:00 00:00:00 ion Loretta L. 61686.1.[address] 3.430.2.7 Hospit a .3.685732 l .8 2022-09-14 2022-09-14 Orders Pan, 1.2.840.1 [id number] Methodi 00:00:00 00:00:00 Only Loretta L. 91392.1.[address] 3.430.2.7 Hospit a .3.864109 l .8 2022-09-14 2022-09-14 Orders Pan, 1.2.840.1 [id number] Methodi 00:00:00 00:00:00 Only Loretta L. 47713.1.[address] 3.430.2.7 Hospit a .3.188715 l .8 2022-09-14 2022-09-14 Telephone Mason, 1.2.840.1 [id number] Methodi 00:00:00 00:00:[address] 3.430.2.7 Hospit a .3.999430 l .8 2022-09-14 2022-09-14 [facility], 1.2.840.1 [id number] Methodi 00:00:00 00:00:00 Only Loretta L. 51472.1.[address] 3.430.2.7 Hospit a .3.782083 l .8 2022-09-14 2022-09-14 [facility] Pan, 1.2.840.1 [id number] Methodi 00:00:00 00:00:00 Only Loretta L. 06084.1.[address] 3.430.2.7 Hospit a .3.466918 l .8 2022-09-14 2022-09-14 [place] Mason, 1.2.840.1 [id number] Methodi 00:00:00 00:00:[address] 3.430.2.7 Hospit a .3.432544 l .8 2022-09-02 2022-09-02 [facility], 1.2.840.1 [id number] Methodi 14:40:00 14:45:00 Loretta L[address] 3.430.2.7 Hospit a .3.449823 l .8 2022-09-02 2022-09-02 [facility] Pan, 1.2.840.1 [id number] Methodi 14:40:00 14:45:00 Loretta L. [address] 3.430.2.7 Hospit a .3.567425 l .8 2022-09-02 2022-09-02 Documentat Pan, 1.2.840.1 [id number] Methodi 00:00:00 00:00:00 ion Loretta L. 71983.1.[address] 3.430.2.7 Hospit a .3.450118 l .8 2022-09-02 2022-09-02 Telephone Zi, 1.2.840.1 [id number] [id number] Methodi 00:00:00 00:00:[address] 3.430.2.7 Hospit a .3.396890 l .8 2022-09-02 2022-09-02 Documentat Pan, 1.2.840.1 [id number] [id number] Methodi 00:00:00 00:00:00 ziyad Burgos L. 39788.1.[address] 3.430.2.7 Hospit a .3.128550 l .8 2022-09-02 2022-09-02 Telephone Zi, 1.2.840.1 [id number] [id number] Methodi 00:00:00 00:00:[address] 3.430.2.7 Hospit a .3.382008 l .8 2022-09-01 2022-09-01 Refill Pan, 1.2.840.1 [id number] Methodi 00:00:00 00:00:00 Loretta L[address] 3.430.2.7 Hospit a .3.365338 l .8 2022-09-01 2022-09-01 Refill Pan, 1.2.840.1 [id number] Methodi 00:00:00 00:00:00 Loretta L[address] 3.430.2.7 Hospit a .3.719415 l .8 2022-08-31 2022-08-31 [facility] Mason, 1.2.840.1 [id number] [id number] Methodi 00:00:00 00:00:00 Only Shameka 43712.1.[address] 3.430.2.7 Hospit a .3.434838 l .8 2022-08-31 2022-08-31 Orders Mason, 1.2.840.1 [id number] 2099 [id number] Methodi 00:00:00 00:00:00 Only Shameka 00781.1.[address] 3.430.2.7 Hospit a .3.116158 l .8 2022-08-31 2022-08-31 Orders Mason, 1.2.840.1 [id number] 2099 [id number] Methodi 00:00:00 00:00:00 Only Shameka [address]779.1.[address] 3.430.2.7 Hospit a .3.041463 l .8 2022-08-31 2022-08-31 Orders Mason, 1.2.840.1 [id number] 2099 [id number] Methodi 00:00:00 00:00:00 Only Shameka 20437.1.[address] 3.430.2.7 Hospit a .3.598802 l .8 2022-08-24 2022-08-24 Telephone Pan, 1.2.840.1 [id number] [id number] Methodi 00:00:00 00:00:00 Loretta L. [address] 3.430.2.7 Hospit a .3.563643 l .8 2022-08-24 2022-08-24 Telephone Pan, 1.2.840.1 [id number] Methodi 00:00:00 00:00:00 Loretta [address]. [address]349.1.[address] 3.430.2.7 Hospit a .3.277824 l .8 2022-07-22 2022-07-22 Office Jeaneth, 1.2.840.1 [id number] 2077 Methodi 10:30:00 10:45:00 Visit Austen 53270.1.[address] [place] 3.430.2.7 Hospit a .3.056429 l .8 2022-07-22 2022-07-22 Office Jeaneth, 1.2.840.1 [id number] 0207 Methodi 10:30:00 10:45:00 Visit Austen 73132.1.[address] [place] 3.430.2.7 Hospit a .3.503755 l .8 2022-07-22 2022-07-22 Outpatient JEANETH, [facility] [id number] [address] [place] 00:00:00 00:00:00 [place] [address] 2022-07-21 2022-07-21 Travel 1.2.840.1 1.2.885.904 2368 [id number] Methodi 00:00:00 00:00:[address] 3.430.2.7 0.2.7.3.698 Ho spita .3.609635 084.8 l .8 2022-07-21 2022-07-21 Orders Levin-Mar 1.2.840.1 [id number] 21 [id number] Methodi 00:00:00 00:00:00 Only Fela rojas 48726.1.1 013 s t D 3.430.2.7 Hospit a .3.128084 l .8 2022-07-21 2022-07-21 Travel 1.2.840.1 1.2.643.954 2790 028265 Methodi 00:00:00 00:00:[address] 3.430.2.7 0.2.7.3.698 Ho spita .3.864133 084.8 l .8 2022-07-21 2022-07-21 Orders Leivn-Mar 1.2.840.1 [id number] 21 [id number] Methodi 00:00:00 00:00:00 Only Fela rojas 17201.1.1 013 s t D 3.430.2.7 Hospit a .3.316367 l .8 2022-07-08 2022-07-08 Telephone Toni, 1.2.840.1 [id number] 2 [id number] Methodi 00:00:00 00:00:[address] 3.430.2.7 Hospit a .3.330581 l .8 2022-07-08 2022-07-08 Telephone Toni, 1.2.840.1 [id number] 2 [id number] Methodi 00:00:00 00:00:[address] 3.430.2.7 Hospit a .3.776065 l .8 2022-06-27 2022-06-27 [facility], 1.2.840.1 [id number] Methodi 15:45:00 15:56:34 ne Loretta L. 05799.1.[address] 3.430.2.7 Hospit a .3.041171 l .8 2022-06-27 2022-06-27 [facility], 1.2.840.1 [id number] 898 [id number] Methodi 15:45:00 15:56:34 ne Loretta L. 70312.1.[address] 3.430.2.7 Hospit a .3.686935 l .8 2022-06-27 2022-06-27 Travel 1.2.840.1 1.2.496.038 9174 [id number] Methodi 00:00:00 00:00:[address] 3.430.2.7 0.2.7.3.698 Ho spita .3.863133 084.8 l .8 2022-06-27 2022-06-27 Travel 1.2.840.1 1.2.995.925 6352 [id number] Methodi 00:00:00 00:00:[address] 3.430.2.7 0.2.7.3.698 Ho spita .3.302132 084.8 l .8 2022-03-03 2022-03-03 Telephone Toni, 1.2.840.1 [id number] 2 [id number] Methodi 00:00:00 00:00:[address] 3.430.2.7 Hospit a .3.859235 l .8 2022-03-03 2022-03-03 [facility] 1.2.840.1 [id number] Methodi 00:00:00 00:00:00 [address] 3.430.2.7 Hospit a .3.727229 l .8 2022-03-03 2022-03-03 [facility], 1.2.840.1 [id number] 2 [id number] Methodi 00:00:00 00:00:[address] 3.430.2.7 Hospit a .3.570209 l .8 2022-03-03 2022-03-03 [facility], 1.2.840.1 [id number] 960 [id number] Methodi 00:00:00 00:00:[address] 3.430.2.7 Hospit a .3.098677 l .8 2022-01-06 2022-01-06 Office Pan, 1.2.840.1 [id number] 9333 Methodi 16:00:00 16:34:43 Visit Loretta Aguillon 60584.1.[address] 3.430.2.7 Hospit a .3.978440 l .8 2022-01-06 2022-01-06 Office Pan, 1.2.840.1 [id number] 7483 Methodi 16:00:00 16:34:43 Visit Loretta Aguillon 92532.1.[address] 3.430.2.7 Hospit a .3.609767 l .8 2022-01-06 2022-01-06 Travel 1.2.840.1 1.2.844.334 8083 [id number] Methodi 00:00:00 00:00:[address] 3.430.2.7 0.2.7.3.698 Ho spita .3.452446 084.8 l .8 2022-01-06 2022-01-06 Travel 1.2.840.1 1.2.916.864 6386 [id number] Methodi 00:00:00 00:00:00 70540.1.1 350.1.13.43 934 3.430.2.7 0.2.7.3.698 spita .3.410148 084.8 l .8 2021-11-12 2021-11-12 Outpatient JOAQUIN Polanco [facility] [id number] [facility] 12:00:00 12:00:00 Sandy 68 [facility] 2021-04-19 2021-04-19 Outpatient [facility] [id number] [place] 00:00:00 00:00:00 LORETTA [address] 2020-12-15 2020-12-15 Outpatient [facility] [id number] [place] 00:00:00 00:00:[address] 2020-12-11 2020-12-11 Outpatient [facility] [id number] [place] 00:00:00 00:00:00 LORETTA [address] 2020-10-16 2020-10-16 Outpatient JOAQUIN Polanco [facility] [id number] [facility] 16:26:00 16:26:00 Sandy [id number] [facility] 2020-09-10 2020-09-10 Outpatient [facility] [id number] [place] 00:00:00 00:00:00 LORETTA [address] 2020-08-04 2020-08-04 Outpatient [facility] [id number] 304 [place] 00:00:00 00:00:[address] 2020-07-22 2020-07-[address] [facility] [id number] [facility] 09:00:00 09:00:00 IVY 955254 [facility] 2020-07-22 2020-07-[address] [facility] [id number] [facility] 09:00:00 09:00:00 IVY [facility] 2020-07-01 2020-07-[address] [facility] [id number] [facility] 09:50:00 09:50:00 IVY ity [facility] 2020-04-06 2020-04-06 Outpatient CAREN [facility] 87085 [id number] [place] 00:00:00 00:00:00 BRANDIE [address] 2020-03-12 2020-03-12 Outpatient VIVIANE [facility] [id number] [place] 00:00:00 00:00:00 LORETTA [address] 2020-02-19 2020-02-19 Outpatient CAREN [facility] [id number] [id number] [place] 00:00:00 00:00:00 BRANDIE [address] 2020-02-19 2020-02-19 Outpatient [facility] [id number] [place] 00:00:00 00:00:[address] 2019-09-12 2019-09-12 Outpatient VIVIANE [facility] [id number] [place] 00:00:00 00:00:00 LORETTA [address] 2019-08-30 2019-08-30 Outpatient JOAQUIN Polanco [facility] [id number] [facility] 12:00:00 12:00:00 Sandy [id number] [facility] 2019-03-25 2019-03-25 Outpatient CAREN [facility] 87912 [id number] [place] 00:00:00 00:00:00 BRANDIE [address] Results Test Description Test Time Test Comments Results Result Comments Source Ferritin level 2022-12-27 10:02:00 Test Item Value Reference Range Interpretation Comme nts Ferritin level (test code = 2276-4) 5 ng/mL 16-288 L STACY (test code = STACY) FASTING:NO FASTING: NO RAC (test code = RAC) Performing Organization Information: Site ID: RGA Name: [facility] Address: [address] [place] [address] Director: Herman Rodriguez Lab Interpretation (test code = Abnormal 17934-3) [facility] [id number] 10:02:00 Test Item Value Reference Range Interpretation Comments WBC (test code = 15.7 See_Comment H [Automated 3690-2) message] The system which generated this result transmitted reference range : 3.8 - 10.8 Thousand/uL. Th e reference range was not used to interpret this result as normal/abnormal . RBC (test code = 3.46 See_Comment L [Automated 789-8) message] The system which generated this result transmitted reference range : 3.80 - 5.10 Million/uL. The reference range was not used to interpret this result as normal/abnormal . HGB (test code = 9.9 g/dL 11.7-15.5 L 718-7) HCT (test code = 29.9 % 35.0-45.0 L 4544-3) MCV (test code = 86.4 fL 80.0-100.0 787-2) MCH (test code = 28.6 pg 27.0-33.0 785-6) MCHC (test code = 33.1 g/dL 32.0-36.0 786-4) RDW (test code = 12.4 % 11.0-15.0 788-0) Platelet count (test 305 See_Comment [Autom ated code = 777-3) message] The system which generated this result transmitted reference range : 140 - 400 Thousand/uL. Th e reference range was not used to interpret this result as normal/abnormal . MPV (test code = 10.9 fL 7.5-12.5 776-5) STACY (test code = FASTING:NO STACY) FASTING: NO RAC (test code = Performing RAC) Organization Information: Site ID: RGA [facility]: [facility] Address: [address] [place] [phone] Director: Herman Rodriguez Lab Interpretation Abnormal (test code = 39109-8) [facility] iron binding [id number] 10:02:00 Test Item Value Reference Range Interpretation Comments Iron level (test 24 See_Comment L [Automated code = 2498-4) message] The system which generated this result transmitted reference range : 45 - 160 mcg/dL . The reference range was not used to interpr et this result as normal/abnormal . Iron binding 334 See_Comment [Automated capacity (test code message] The = 2500-7) system which generated this result transmitted reference range : 250 - 450 mcg/d L (calc). The reference range was not used to interpret this result as normal/abnormal . Iron saturation 7 See_Comment L [Automated (test code = 2502-3) message ] The system which generated this result transmitted reference range : 16 - 45 % (calc ). The reference range was not used to interpr et this result as normal/abnormal . STACY (test code = FASTING:NO STACY) FASTING: NO RAC (test code = Performing RAC) Organization Information: Site ID: RGA Name: [facility] Address: [address] [place] [address] Director: Herman Rodriguez Lab Interpretation Abnormal (test code = 66808-1) [facility] [id number] 21:46:00 Test Item Value Reference Interpretation Comments Range Fecal calprotectin 1190 mcg/g H Referenc e Range: <50 (test code = Normal 50-120 32366-5) Borderline >120 Elevated Calpro tectin in Crohn's dise ase and ulcerative coli tis canbe five to s everal thousand times above the referencepo pulation (50 mcg/g or le ss). Levels are usua lly 50 mcg/gor less in healthy patients and wi th irritable bowelsyndrome. Repeat testing in 4-6 weeks is suggested forbo rderline values. RAC (test code = Performing RAC) Organization Information: Site ID: EZ Name: [facility], Address: [address] [place] [phone] Director: Didi Mccollum MD,PhD,MATI Lab Interpretation Abnormal (test code = 74840-3) [facility] pathology [id number] 03:26:27 Test Item Value Reference Range Interpretation Comments Case number (test code = [id number]) Surgical pathology See link below for report (test code = PDF Lab Report 2255) Result status (test code This is Final Report = [id number]) for [id number] [facility] pathology [id number] 03:26:27 Test Item Value Reference Range Interpretation Comments Case number (test code = [id number]) Surgical pathology See link below for report (test code = PDF Lab Report 2255) Result status (test code This is Final Report = [id number]) for [id number] [facility] pathology [id number] 03:26:27 Test Item Value Reference Range Interpretation Comments Case number (test code = [id number]) Surgical pathology See link below for report (test code = PDF Lab Report 2255) Result status (test code This is Final Report = [id number]) for [id number] [facility] [id number] 18:30:00 Test Item Value Reference Range Interpretation [...] RAC) Organization Information: Site ID: RGA Name: [facility] Address: [address] [place] [phone] Director: Herman Rodriguez [facility] [id number] 18:30:00 Test Item Value Reference Range Interpretation Comments Glucose (test code 68 mg/dL 65-99 Fasting = 2345-7) reference interval BUN (test code = 18 mg/dL 7-25 3094-0) Creatinine (test 0.70 mg/dL 0.50-1.05 code = 2160-0) eGFR (test code = 97 See_Comment The eGFR i s based 44386-0) on the CKD-EPI 2020 equation. To calculate [...] CO2 (test code = 32 mmol/L 20-32 2027-) Calcium (test code 9.4 mg/dL 8.6-10.4 = 44840-5) Protein (test code 6.4 g/dL 6.1-8.1 = 2885-2) Albumin, S (test 4.1 g/dL 3.6-5.1 code = 1751-7) Globulin, total 2.3 See_Comment [Automated (test code = message] The 77621-1) system which generated this result transmitted reference range : 1.9 - 3.7 g/dL (calc). The reference range was not used to interpret this result as normal/abnormal . Albumin/globulin 1.8 See_Comment [Automated ratio (test code = message] The 7539-0) system which generated this result transmitted reference range : 1.0 - 2.5 (calc ). The reference range was not used to interpr et this result as normal/abnormal . Total bilirubin 0.6 mg/dL 0.2-1.2 (test code = 1974-2) Alkaline 74 U/L 37-153 phosphatase (test code = 6768-6) AST (test code = 19 U/L 10-35 1920-8) ALT (test code = 15 U/L 6-29 174-6) STACY (test code = FASTING:YES STACY) FASTING: YES RAC (test code = Performing RAC) Organization Information: Site ID: RGA Name: [facility] Address: [address] [place] [phone] Director: [facility]leyNor[facility] HospitalVitamin B12 [id number] 18:30:00 Test Item Value Reference Interpretation Comments Range Vitamin B12 382 pg/mL 200-1100 Please Note: A lthough the (test code = reference range for 2132-03) [id number] is 2 00-1100 pg/mL, it has b [...] code = RAC) Organization Information: Site ID: RGA [facility]: [facility] Address: [address] [place] [address] Director: Herman Rodriguez [facility] Center[facility] [id number] 18:30:00 Test Item Value Reference Range Interpretation Comments Ferritin level (test 12 ng/mL 16-288 L code = 2276-4) STACY (test code = STACY) FASTING:YES FASTING: YES RAC (test code = RAC) Performing Organization Information: Site ID: A Name: [facility] Address: [address] [place] [address] Director: Herman Rodriguez Lab Interpretation (test Abnormal code = 70934-3) [facility]-reactive [id number] 18:30:00 Test Item Value Reference Range Interpretation Comments CRP (test code = 0.3 mg/L <=8.0 1988-5) STACY (test code = FASTING:YES FASTING: YES STACY) RAC (test code = Performing Organization RAC) Information: Site ID: RGA Name: [facility] Address: [address] [place] [address] Director: Herman Rodriguez [facility] [id number] 18:30:00 Test Item Value Reference Range Interpretation Comments WBC (test code = 6.1 See_Comment [Automated 2190-2) message] The system which generated this result [...] = Performing RAC) Organization Information: Site ID: GINAA Name: [facility] Address: [address] [place] [address] Director: [facility] [id number] 18:30:00 Test Item Value Reference Range Interpretation [...] RAC) Organization Information: Site ID: RGA [facility]: [facility] Address: [address] [place] [address] Director: [facility] 25 hydroxy [id number] 18:30:00 Test Item Value Reference Range Interpretation Comments Vitamin D, 39 ng/mL 30-100 Vitamin D Statu s 25-hydroxy (test 25-OH Vitam in D: code = 1989-) Deficiency: < 20 ng/mLInsufficie ncy : 20 [...] please refer to http://educatio n.Q uestDiagnostics .co m/faq/ZMW302 (T his link is being provided for informational/e regulo ational purpose s only.) STACY (test code = FASTING:YES FASTING: STACY) YES RAC (test code = Performing RAC) Organization Information: Site ID: [facility] Name: [facility] Address: [address] [place] [phone] Director[facility] iron binding [id number] 18:30:00 Test Item Value Reference Range Interpretation [...] RAC) Organization Information: Site ID: RGA Name: [facility] Address: [address] [place] [phone] Director: [facility] metabolic [id number] 18:30:00 Test Item Value Reference Range Interpretation Comments Glucose (test code 68 mg/dL 65-99 Fasting = 2345-7) reference interval BUN (test code = 18 mg/dL 7- 3094-0) Creatinine (test 0.70 mg/dL 0.50-1.05 code = 2160-0) eGFR (test code = 97 See_Comment The eGFR i s based 26073-5) on the CKD-EPI 2020 equation. To calculate the n ew eGFR from a previous Creatinine or Cystatin Cresul t, go to https://www.kid ne y.org/professio na ls/kdoqi/gfr%5F ca lculator [Automated message] The system which [...] CO2 (test code = 32 mmol/L 20-32 2027-) Calcium (test code 9.4 mg/dL 8.6-10.4 = 16457-2) Protein (test code 6.4 g/dL 6.1-8.1 = 2885-2) Albumin, S (test 4.1 g/dL 3.6-5.1 code = 1751-7) Globulin, total 2.3 See_Comment [Automated (test code = message] The 82761-5) system which generated this result transmitted reference range : 1.9 - 3.7 g/dL (calc). The reference range was not used to interpret this result as normal/abnormal . Albumin/globulin 1.8 See_Comment [Automated ratio (test code = message] The 0599-0) system which generated this result transmitted reference [...] = Performing RAC) Organization Information: Site ID: [facility] Name: [facility] Address: [address] [place] [phone] Director: Herman CasillasCHI [facility] HospitalVitamin B12 [id number] 18:30:00 Test Item Value Reference Interpretation Comments Range Vitamin B12 382 pg/mL 200-1100 Please Note: A lthough the (test code = reference range for 2132-03) [id number] is 2 00-1100 pg/mL, it has b [...] code = RAC) Organization Information: Site ID: [facility]: [facility] Address: [address] [place] [phone] Director: Herman Rodriguez [facility] CenterFerritin [id number] 18:30:00 Test Item Value Reference Range Interpretation Comments Ferritin level (test 12 ng/mL 16-288 L code = 2276-4) STACY (test code = STACY) FASTING:YES FASTING: YES RAC (test code = RAC) Performing Organization Information: Site ID: [facility] Name: [facility] Address: [address] [place] [phone] Director: Herman Rodriguez Lab Interpretation (test Abnormal code = 88368-1) [facility] Center[facility]-reactive [id number] 18:30:00 Test Item Value Reference Range Interpretation Comments CRP (test code = 0.3 mg/L <=8.0 1988-5) STACY (test code = FASTING:YES FASTING: YES STACY) RAC (test code = Performing Organization RAC) Information: Site ID: MARLENA Name: [facility] Address: [address] [place] [phone] Director: [facility]illasDo[facility] [id number] 18:30:00 Test Item Value Reference Range Interpretation [...] RAC) Organization Information: Site ID: MARLENA Name: [facility] Lab Address: [address] [place] [address] Director: Herman Rodriguez [facility] Instituteedimentation [id number] 18:30:00 Test Item Value Reference Range Interpretation [...] = Performing RAC) Organization Information: Site ID: [facility] Name: [facility] Address: [address] [place] [phone] Director: [facility] HospitalVitamin D 25 hydroxy [id number] 18:30:00 Test Item Value Reference Range Interpretation [...] please refer to http://educatio n.Q uestDiagnostics .co m/faq/HNC356 (T his link is being provided for informational/e regulo ational purpose s only.) STACY (test code = FASTING:YES FASTING: STACY) YES RAC (test code = Performing RAC) Organization Information: Site ID: [facility] Name: [facility] Address: [address] [place] [phone] Director: [facility] HospitalCom[facility] metabolic [id number] 18:30:00 Test Item Value Reference Range Interpretation Comments Glucose (test code 68 mg/dL 65-99 Fasting = 2345-7) reference interval BUN (test code = 18 mg/dL 7-25 3094-0) Creatinine (test 0.70 mg/dL 0.50-1.05 code = 2160-0) eGFR (test code = 97 See_Comment The eGFR i s based 05935-2) on the CKD-EPI 2020 equation. To calculate the n ew eGFR from a previous Creatinine or Cystatin Cresul t, go to https://www.kid ne y.org/daniel black/kdoqi/gfr%5F ca lculator [Automated message] The system [...] Calcium (test code 9.4 mg/dL 8.6-10.4 = 60126-1) Protein (test code 6.4 g/dL 6.1-8.1 = 2885-2) Albumin, S (test 4.1 g/dL 3.6-5.1 code = 1751-7) Globulin, total 2.3 See_Comment [Automated (test code = message] The 18613-0) system which generated this result transmitted reference range : 1.9 - 3.7 g/dL (calc). The reference range was not used to interpret this result as normal/abnormal . Albumin/globulin 1.8 See_Comment [Automated ratio (test code = message] The 17590) system which generated this result transmitted reference range : 1.0 - 2.5 (calc ). The reference range was not used to interpr et this result as normal/abnormal . Total bilirubin 0.6 mg/dL 0.2-1.2 (test code = 1975-2) Alkaline 74 U/L 37-153 phosphatase (test code = 6768-6) AST (test code = 19 U/L 10-35 1920-8) ALT (test code = 15 U/L 01-05 1742-6) STACY (test code = FASTING:YES STACY) FASTING: YES RAC (test code = Performing RAC) Organization Information: Site ID: MAR[place] Name: [facility] Address: [address] [place] [address] Director: [facility] HospitalVitamin B12 [id number] 18:30:00 Test Item Value Reference Interpretation Comments Range Vitamin B12 382 pg/mL 200-1100 Please Note: A lthough the (test code = reference range for 2132-03) [id number] is 2 00-1100 pg/mL, it has b [...] RAC) Organization Information: Site ID: [place] [facility]: [facility] Address: [address] [place] [address] [address]: [facility] Hospital[facility]-reactive [id number] 18:30:00 Test Item Value Reference Range Interpretation Comments CRP (test code = 0.3 mg/L <=8.0 1987-11) STACY (test code = FASTING:YES FASTING: YES STACY) RAC (test code = Performing Organization RAC) Information: Site ID: [place] Name: [facility] Address: [address] [place] [phone] Director: [facility] Hospitalediment[facility] [id number] 18:30:00 Test Item Value Reference Range Interpretation [...] = Performing RAC) Organization Information: Site ID: Ryan Name: [facility] Address: [address] [place] [address] [place] [address] Director: [facility] HospitalVitamin D 25 hydroxy [id number] 18:30:00 Test Item Value Reference Range Interpretation Comments Vitamin D, 39 ng/mL 30-100 Vitamin D Statu s 25-hydroxy (test 25-OH Vitam in D: code = 1989-) Deficiency: < 20 ng/mLInsufficie ncy : 20 [...] please refer to http://educatio n.Q uestDiagnostics .co m/faq/FHY053 (T his link is being provided for informational/e regulo ational purpose s only.) STACY (test code = FASTING:YES FASTING: STACY) YES RAC (test code = Performing RAC) Organization Information: Site ID: RGA Name: [facility] Address: [address] [place] [phone] Director: [facility]
[2023-01-06 16:51] LABS: Absolute Lymphocytes (CBC) 1.9 K/uL (0.7-4.9); Hematocrit 29.2 % (36.0-45.0); Lymphocytes % 21.3 % (15.3-44.8); MCV 85.5 fL (80-100); MPV 8.2 fL (7.6-11.3); RBC Red Blood Cell Count 3.41 M/uL (3.86-4.86)
[2023-01-06 16:52] LABS: Protime INR 0.95
[2023-01-06] MEDS ORDERED: NA CHLORIDE 0.9% 1,000 ML ONE ×2 (16:55→19:25)
[2023-01-06 17:01] LABS: Renal Epithelial <5 /HPF (None Seen); Urine Bacteria None Seen /HPF (<20); Urine Bilirubin NEGATIVE (Negative); Urine Blood Negative (Negative); Urine Clarity Clear (Clear); Urine Color Light-Yellow (Yellow); Urine Glucose NEGATIVE (Negative); Urine Protein NEGATIVE (Negative); Urine RBC None Seen /HPF (None Seen); Urine Urobilinogen 1+ (Normal); Urine pH 6.5 (5.0-7.0)
[2023-01-06 17:20] LABS: Albumin 2.9 g/dL (3.4-5.0); Bilirubin Total 0.3 mg/dL (0.2-1.0); Potassium 3.4 mEq/L (3.5-5.1); Protein, Total 6.5 g/dL (6.4-8.2)
--- NOTE | 2023-01-06 18:06 | RAD REPORT ---
EXAM DESCRIPTION: CT - Abdomen Pelvis W Contrast - 01/06/2023 5:52 pm CLINICAL HISTORY: Abdominal pain COMPARISON: November 2022 TECHNIQUE: Computed axial tomography of the abdomen pelvis was obtained. 100 cc Isovue-300 was admin istered intravenously. Oral contrast was not requested which limits evaluation of bowel and appendix All CT scans are performed using dose optimization technique as appropriate and may include automated exposure control or mA/KV adjustment according to patient size. FINDINGS: Multiple gallstones. Gallbladder wall not thickened The liver, spleen, pancreas, adrenal and kidneys appear unremarkable. Prominent scoliosis. The rectal wall is mildly to moderately thickened. There are several tiny perirectal lymph nodes. No ascites. No evidence of diverticulitis. No adnexal mass IMPRESSION: Mild to moderate rectal wall thickening probably related to inflammation. Neoplasm is a another consideration given small perirectal lymph nodes. Cholelithiasis without evidence cholecystitis
[2023-01-06] MEDS ORDERED: CIPROFLOXACIN 400mg IV 400 MG/200 ML BAG IV ONE (19:25)
[2023-01-06] MEDS ORDERED: METRONIDAZOLE 500mg IVPB 500 MG/100 ML BAG IV ONE (19:25)
[2023-01-06] MEDS ORDERED: NS KCL 20MEQ 1,000 ML IV ONE (19:25)
[2023-01-06] MEDS ORDERED: ACETAMINOPHEN 500 MG TAB ONE (19:26)
--- NOTE | 2023-01-06 19:55 | EDPHYS ---
Physician Documentation [facility] Name: Mari Amador Age: 62 yrs Sex: Female : 1960 Arrival Date: 01/06/2023 Time: 15:41 Bed 14 Private MD: Severo Gonsales ED Physician Devyn Licona HPI: 01/06 17:46 This 62 yrs old Female presents to ER via Ambulatory with complaints of Low Back Pain, ms3 Fever. 17:46 62-year-old female with past medical history of ulcerative colitis and hypothyroidism ms3 presents for fever of 103. Patient states she was seen for similar symptoms 2 weeks ago and was given IV antibiotics and fluids. Patient states she finished her prescription last week and her fever returned. Patient states she began taking Cipro yesterday. Patient denies nausea vomiting. Patient states her discomfort is a 5/10 and she feels sore.. Historical: - Allergies: 15:48 Sulfa (Sulfonamide Antibiotics); bp - Home Meds: 15:48 lamotrigine 25 mg Oral tablet at bedtime [Active]; levothyroxine 100 mcg tablet twice bp weekly [Active]; atorvastatin 80 mg Oral tablet daily [Active]; - PMHx: 15:48 Colitis; Hypothyroidism; bp - PSHx: 15:48 left shoulder; stomach; bp - Immunization history:: Adult Immunizations up to date. - Social history:: Smoking status: Patient denies any tobacco usage or history of. ROS: 17:46 Constitutional: Negative for fever, and chills. Cardiovascular: Negative for chest ms3 pain, and palpitations. Respiratory: Negative for shortness of breath, cough, wheezing, and pleuritic chest pain, Abdomen/GI: Negative for abdominal pain, nausea, vomiting, diarrhea, and constipation, MS/Extremity: Negative for injury and deformity. 17:46 Abdomen/GI: Positive for diarrhea. 17:46 All other systems are negative. Exam: 17:46 Constitutional: This is a well developed, well nourished patient who is awake, alert, ms3 and in no acute distress. Neck: Trachea midline, no cervical lymphadenopathy. Supple, full range of motion without nuchal rigidity, or vertebral point tenderness. No Meningismus. Chest/axilla: Normal chest wall appearance and motion. Nontender with no deformity. Cardiovascular: Regular rate and rhythm with a normal S1 and S2. No gallops, murmurs, or rubs. Normal PMI, no JVD. No pulse deficits. Respiratory: Lungs have equal breath sounds bilaterally, clear to auscultation and percussion. No rales, rhonchi or wheezes noted. No increased work of breathing, no retractions or nasal flaring. 17:46 Skin: Warm, dry with normal turgor. Normal color with no rashes, no lesions, and no evidence of cellulitis. MS/ Extremity: Pulses equal, no cyanosis. Neurovascular intact. Full, normal range of motion. 17:46 Abdomen/GI: Inspection: abdomen appears normal, Bowel sounds: normal, Palpation: mild abdominal tenderness, in the right lower quadrant and left lower quadrant. 19:52 ECG was reviewed by the Attending Physician. [facility] Vital Signs: 15:45 BP 121 / 78; Pulse 110; Resp 20; Temp 99.6; Pulse Ox 98% ; Weight 58.97 kg; Height 5 bp ft. 5 in. ; 19:14 BP 102 / 74; Pulse 75; Resp 18; Pulse Ox 100% on R/A; mb9 20:39 BP 106 / 96; Pulse 94; Resp 18; Pulse Ox 98% on R/A; mb9 21:01 Temp 98.2(O); mb9 15:45 Body Mass Index 21.63 (58.97 kg, 165.1 cm) bp MDM: 15:58 Patient medically screened. ms3 17:46 Differential diagnosis: UTI, Colitis. Data reviewed:. ms3 17:52 Transition of care: After a detail discussion of the patient's case, care is ms3 transferred to Devyn Licona MD. 19:51 Consideration of Admission/Observation Patient was admitted/placed on observation. [facility] Escalation of care including admission/observation considered. I considered the following discharge prescriptions or medication management in the emergency department Medications were administered in the Emergency Department. See MAR. Independent interpretation of the following test(s) in the Emergency Department EKG: See my EKG interpretation above. Test considered but Not performed: Ultrasound no abd usg. Historians other than the Patient: Spouse/Significant Other: . Care significantly affected by the following chronic conditions: uc,hypothyrodism. Counseling: I had a detailed discussion with the patient and/or guardian regarding: the historical points, exam findings, and any diagnostic results supporting the discharge/admit diagnosis, lab results, radiology results, the need for further work-up and treatment in the hospital. 19:53 Management of patient was discussed with the following: Hospitalist: maria t. [facility] 01/06 15:59 Order name: Blood Culture Adult (2) ms3 01/06 15:59 Order name: CBC with Diff; Complete Time: 17:07 ms3 01/06 15:59 Order name: CMP; Complete Time: 17:23 ms3 01/06 15:59 Order name: Lactate w/ 2H reflex if indic.; Complete Time: 17:07 ms3 01/06 15:59 Order name: Protime (+inr); Complete Time: 17:07 ms3 01/06 15:59 Order name: Ptt, Activated; Complete Time: 17:07 ms3 01/06 15:59 Order name: Urinalysis w/ reflexes; Complete Time: 17:07 ms3 01/06 19:55 Order name: Type And Screen [facility] 01/06 20:54 Order name: Urinalysis w/ reflexes EDMS 01/06 20:54 Order name: Basic Metabolic Panel EDMS 01/06 20:54 Order name: Basic Metabolic Panel EDMS 01/06 20:54 Order name: CBC with Automated Diff EDMS 01/06 20:54 Order name: CBC with Automated Diff EDMS 01/06 20:54 Order name: Magnesium EDMS 01/06 20:54 Order name: Magnesium EDMS 01/06 16:00 Order name: CT Abd/Pelvis - IV Contrast Only; Complete Time: 18:47 ms3 01/06 15:59 Order name: EKG; Complete Time: 16:00 ms3 01/06 20:54 Order name: Full Liquid EDMS 01/06 15:59 Order name: Accucheck; Complete Time: 16:12 ms3 01/06 15:59 Order name: Cardiac monitoring; Complete Time: 16:12 ms3 01/06 15:59 Order name: EKG - Nurse/Tech; Complete Time: 16:12 ms3 01/06 15:59 Order name: IV Saline Lock - Large Bore; Complete Time: 16:12 ms3 01/06 15:59 Order name: Labs collected and sent; Complete Time: 16:12 ms3 01/06 15:59 Order name: O2 Per Protocol; Complete Time: 16:38 ms3 01/06 15:59 Order name: O2 Sat Monitoring; Complete Time: 16:38 ms3 01/06 15:59 Order name: Vital Signs; Complete Time: 16:38 ms3 EC:52 Rate is 89 beats/min. Rhythm is regular. QRS [place] is Normal. CT interval is normal. QRS richi interval is normal. QT interval is normal. No Q waves. T waves are Normal. No ST changes noted. Clinical impression: NSR w/ Non-specific ST/T Changes and No evidence of ischemia. Interpreted by me. Reviewed by me. Administered Medications: 16:52 Drug: NS 0.9% IV 1000 ml Route: IV; Rate: 1000 ml; Site: right forearm; os 19:26 Drug: NS 0.9% IV 1000 ml Route: IV; Rate: 1 bolus; Site: right forearm; mb9 19:26 Drug: Acetaminophen PO 1000 mg Route: PO; mb9 20:23 Follow up: Response: No adverse reaction mb9 19:27 Drug: NS 0.9% with KCl IV 20 mEq/L 1000 ml Route: IV; Rate: 125 ml/hr; Site: right mb9 forearm; 19:40 Drug: metroNIDAZOLE IVPB 500 mg Volume: 100 ml; Route: IVPB; Rate: 200 ml/hr; Infused mb9 Over: 30 mins; Site: right antecubital; 20:23 Follow up: Response: No adverse reaction; IV Status: Completed infusion mb9 20:00 Drug: MethylPrednisoLONE IVP 125 mg Route: IVP; Site: right antecubital; eh3 20:23 Follow up: Response: No adverse reaction mb9 20:00 Drug: Famotidine IVP 20 mg Route: IVP; Site: right antecubital; eh3 20:23 Follow up: Response: No adverse reaction mb9 20:23 Drug: Ciprofloxacin IVPB 400 mg Volume: 200 ml; Route: IVPB; Infused Over: 60 mins; mb9 Site: right antecubital; Disposition Summary: 01/06/23 19:55 Hospitalization Ordered Hospitalization Status: Inpatient Admission richi Provider: Duc Millard cha [facility] richi Condition: Stable richi Problem: new richi Symptoms: have improved richi Bed/Room Type: Standard richi Room Assignment: 411(01/06/23 20:56) rs5 Diagnosis - Abdominal tenderness richi - Left sided colitis with rectal bleeding - mild/moderate rectal thickening richi - Other cholelithiasis without obstruction richi - Anemia, unspecified richi - Hypokalemia richi Forms: - Medication Reconciliation Form richi - SBAR form richi Signatures: Dispatcher [employer] EDDevyn Miranda MD MD cha Peltier, Brian, RN RN bp Devan Sofia DO DO ms3 Phuong Casey RN RN 3 Laurie, Raissa Herrera RN RN mb9 Jesus You rs5 Diaz Rivera RN RN os Corrections: (The following items were deleted from the chart) 20:56 19:55 richi rs5
--- NOTE | 2023-01-06 19:55 | ER ---
Nurse's Notes [facility] Name: Mari Amador Age: 62 yrs Sex: Female : 1960 Arrival Date: 01/06/2023 Time: 15:41 Bed 14 Private MD: Severo Gonsales Diagnosis: Abdominal tenderness;Left sided colitis with rectal bleeding-mild/moderate rectal thickening;Other cholelithiasis without obstruction;Anemia, unspecified;Hypokalemia Presentation: 01/06 15:45 Chief complaint: Patient states: FEVER x3 WK. Coronavirus screen: At this time, the bp client does not indicate any symptoms associated with coronavirus-19. Ebola Screen: No symptoms or risks identified at this time. Initial Sepsis Screen: Does the patient meet any 2 criteria? HR > 90 bpm. No. Patient's initial sepsis screen is negative. Does the patient have a suspected source of infection? No. Patient's initial sepsis screen is negative. Risk Assessment: Do you want to hurt yourself or someone else? Patient reports no desire to harm self or others. 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 Onset of symptoms is unknown. 15:45 Method Of Arrival: Ambulatory bp 15:45 Acuity: JESSICA 3 bp Historical: - Allergies: 15:48 Sulfa (Sulfonamide Antibiotics); bp - Home Meds: 15:48 lamotrigine 25 mg Oral tablet at bedtime [Active]; levothyroxine 100 mcg tablet twice bp weekly [Active]; atorvastatin 80 mg Oral tablet daily [Active]; - PMHx: 15:48 Colitis; Hypothyroidism; bp - PSHx: 15:48 left shoulder; stomach; bp - Immunization history:: Adult Immunizations up to date. - Social history:: Smoking status: Patient denies any tobacco usage or history of. Screenin:28 [facility] ED Fall Risk Assessment (Adult) History of falling in the last 3 months, mb9 including since admission No falls in past 3 months (0 pts) Confusion or Disorientation No (0 pts) Intoxicated or Sedated No (0 pts) Impaired Gait No (0 pts) Mobility Assist Device Used No (0 pt) Altered Elimination No (0 pt) Score/Fall Risk Level 0 - 2 = Low Risk Oriented to surroundings, Maintained a safe environment, Educated pt \T\ family on fall prevention, incl call for assistance when getting out of bed. Abuse screen: Denies threats or abuse. Nutritional screening: No deficits noted. Tuberculosis screening: No symptoms or risk factors identified. Assessment: 16:52 Reassessment: Patient is alert, oriented x 3, equal unlabored respirations, skin os warm/dry/pink. Pain: Denies pain. 19:27 General: Appears in no apparent distress. Behavior is calm, cooperative. Pain: Denies mb9 pain. Neuro: Beaulieu Agitation-Sedation Scale (RASS): 0 - Alert and Calm Level of Consciousness is awake, alert, obeys commands, Oriented to person, place, time, situation, Appropriate for age. Respiratory: Airway is patent Respiratory effort is even, unlabored, Respiratory pattern is regular, symmetrical. GI: Abdomen is flat, non-distended, Bowel sounds present X 4 quads. Abd is soft and non tender X 4 quads. Reports diarrhea. : Reports burning with urination. Derm: Skin is pink, warm \T\ dry. Musculoskeletal: Range of motion: intact in all extremities. 20:58 Reassessment: Attempted to call report to admitting nurse. mb9 Vital Signs: 15:45 BP 121 / 78; Pulse 110; Resp 20; Temp 99.6; Pulse Ox 98% ; Weight 58.97 kg; Height 5 bp ft. 5 in. ; 19:14 BP 102 / 74; Pulse 75; Resp 18; Pulse Ox 100% on R/A; mb9 20:39 BP 106 / 96; Pulse 94; Resp 18; Pulse Ox 98% on R/A; mb9 21:01 Temp 98.2(O); mb9 15:45 Body Mass Index 21.63 (58.97 kg, 165.1 cm) bp ED Course: 15:42 Patient arrived in ED. rg4 15:42 Woodrow Mohr MD is Private Physician. rg4 15:43 Severo Gonsales MD is Private Physician. rg4 15:45 Arm band placed on. bp 15:47 Triage completed. bp 15:49 Devan Sofia DO is Attending Physician. ms3 16:03 Radiology exam delayed due to lab results not completed at this time. (BUN/Creatinine) [id number] IV insertion attempt and/or patient not having appropriate IV at this time. 16:12 Diaz Rivera, RN is Primary Nurse. os 16:38 Blood Culture Adult (2) Sent. os 16:38 CBC with Diff Sent. os 16:38 CMP Sent. os 16:38 Lactate w/ 2H reflex if indic. Sent. os 16:38 Protime (+inr) Sent. os 16:38 Ptt, Activated Sent. os 16:38 Urinalysis w/ reflexes Sent. os 17:52 Attending Physician role handed off by Devan Sofia DO ms3 17:52 Devyn Licona MD is Attending Physician. ms3 17:54 CT Abd/Pelvis - IV Contrast Only In Process Unspecified. EDMS 19:28 Placed in gown. Bed in low position. Call light in reach. Side rails up X 1. Client mb9 placed on continuous cardiac and pulse oximetry monitoring. NIBP monitoring applied. 19:30 Missed attempt(s): 22 gauge in left antecubital area. [email or web address] 19:40 Inserted saline lock: 20 gauge in right antecubital area, using aseptic technique. mb9 19:53 Duc Millard MD is Hospitalizing Provider. [facility] 21:08 No provider procedures requiring assistance completed. Patient admitted, IV remains in mb9 place. Administered Medications: 16:52 Drug: NS 0.9% IV 1000 ml Route: IV; Rate: 1000 ml; Site: right forearm; os 19:26 Drug: NS 0.9% IV 1000 ml Route: IV; Rate: 1 bolus; Site: right forearm; mb9 19:26 Drug: Acetaminophen PO 1000 mg Route: PO; mb9 20:23 Follow up: Response: No adverse reaction mb9 19:27 Drug: NS 0.9% with KCl IV 20 mEq/L 1000 ml Route: IV; Rate: 125 ml/hr; Site: right mb9 forearm; 19:40 Drug: metroNIDAZOLE IVPB 500 mg Volume: 100 ml; Route: IVPB; Rate: 200 ml/hr; Infused mb9 Over: 30 mins; Site: right antecubital; 20:23 Follow up: Response: No adverse reaction; IV Status: Completed infusion mb9 20:00 Drug: MethylPrednisoLONE IVP 125 mg Route: IVP; Site: right antecubital; eh3 20:23 Follow up: Response: No adverse reaction mb9 20:00 Drug: Famotidine IVP 20 mg Route: IVP; Site: right antecubital; eh3 20:23 Follow up: Response: No adverse reaction mb9 20:23 Drug: Ciprofloxacin IVPB 400 mg Volume: 200 ml; Route: IVPB; Infused Over: 60 mins; [email or web address] Site: right antecubital; Medication: 19:28 VIS not applicable for this client. mb9 Outcome: 19:55 Decision to Hospitalize by Provider. richi 21:08 Admitted to Med/surg room 411, with chart, Report called to ROGELIO Martinez 21:08 Condition: stable 21:08 Instructed on the need for admit. 21:28 Patient left the ED. jessica Signatures: Dispatcher [employer] EDGA Devyn Licona MD MD cha Garcia, Rubi rg4 Stanton Munoz, RN RN Devan Hernandez, DO ms3 Phuong Casey RN RN eh3 [facility] Laurie, Raissa Herrera RN RN mb9 Lindy Solomon [email or web address] Diaz Rivera RN RN os
[2023-01-06] MEDS ORDERED: FAMOTIDINE 20 MG/2 ML VIAL IV ONE (20:05)
[2023-01-06] MEDS ORDERED: METHYLPREDNISOLONE 125 MG INJ ONE (20:05)
--- NOTE | 2023-01-06 20:35 | P.HP ---
Certification for Inpatient Patient admitted to: Inpatient With expected LOS: >2 Midnights Practitioner: I am a practitioner with admitting privileges, knowledge of patient current condition, hospital course, and medical plan of care. Services: Services provided to patient in accordance with Admission requirements found in Title 42 Section 412.3 of the Code of Federal Regulations Patient History Date of Service: 01/07/23 Reason for admission: Colitis/proctitis, hx of crohn's disease. History of Present Illness: 62-year-old female patient with past medical history significant for Crohn's disease and has been on Remicade for 15 years prior to patient insurance having issues with continuation of the medication. She reported that since medication was stopped she has had recurrent issues with follow-up. She follows up with gastroenterology and plans to have another biologic agent started. She presented with abdominal pain and imaging revealed proctitis in keeping with Crohn's flare. She was started on IV antibiotic therapy and steroid therapy was pending on admission for inpatient care. She denied overt bloody stools, chills, rigor, nausea, vomiting. She did report fever. Allergies No Known Aller Allergy (Uncoded 02/05/17 19:54) Unknown Sulfa (Sulfonamide A Allergy (Uncoded 07/27/15 04:04) Unknown Home Medications: Atorvastatin Calcium [Lipitor] 80 mg PO BEDTIME 01/06/23 Levothyroxine [Synthroid] 88 mcg PO [id number] 01/06/23 Levothyroxine [Synthroid] 100 mcg PO [id number] 01/06/23 Multivitamin/Iron/Folic Acid [Centrum Women Tablet] 1 each PO DAILY 01/06/23 Venlafaxine HCl [Effexor XR] 37.5 mg PO DAILY 01/06/23 lamoTRIgine [Lamictal] 250 mg PO BEDTIME 01/06/23 - Past Medical/Surgical History Diabetic: No -: Crohn's disease -: Hyperlipidemia -: Hypothyroidism - Social History Smoking Status: Never smoker Alcohol use: No CD- Drugs: No Review of Systems General: Malaise Eyes: Unremarkable ENT: Unremarkable Respiratory: Unremarkable Cardiovascular: Unremarkable Gastrointestinal: Abdominal Pain, Unremarkable Genitourinary: Unremarkable Musculoskeletal: Unremarkable Integumentary: Unremarkable Neurological: Unremarkable Physical Examination - Physical Exam General: Alert, Oriented x3 HEENT: Atraumatic, Normocephalic Respiratory: Normal air movement Cardiovascular: Regular rate/rhythm, Normal S1 S2 Gastrointestinal: Tenderness Musculoskeletal: No swelling Neurological: Normal speech - Studies Laboratory Data (last 24 hrs) 01/06/23 16:30: PT 10.4, INR 0.95, APTT 34.3 01/06/23 16:30: Sodium 137, Potassium 3.4 L, BUN 18, Creatinine 0.82, Glucose 91, Total Bilirubin 0.3, AST 17, ALT 20, Alkaline Phosphatase 79 01/06/23 16:30: WBC 8.90, Hgb 9.3 L, Hct 29.2 L, Plt Count 287 Assessment and Plan - Plan Proctitis: Detected on imaging and clinically. We will have started empiric antibiotic with Flagyl and ciprofloxacin. She is also on steroid therapy. We will continue telemetry monitoring of clinical parameters. This is deemed secondary to Crohn's flare. Crohn's flare: Patient does have a history of Crohn's and has had multiple flares in the past.. Unable to give allergy due to insurance related issues. We will continue steroid therapy as empiric treatment and follow clinical response. Hypothyroidism: We will continue levothyroxine Hyperlipidemia: We will continue statin therapy Prophylaxis: SCDs for DVT Code status: Full code. Disposition: We will treat Crohn's flare. - Advance Directives Does patient have a Living Will: No Does patient have a Durable POA for Healthcare: No
[2023-01-06] MEDS ORDERED: ACETAMINOPHEN 325 MG TABLET PO PRN (20:40)
[2023-01-06] MEDS ORDERED: ONDANSETRON 4 MG/2 ML VIAL IV PRN (20:40)
[2023-01-06] MEDS: CIPROFLOXACIN 400mg IV 400 MG/200 ML BAG IV SCH (21:00)
[2023-01-06 22:34] VITALS: BMI 21.6
[2023-01-06] MEDS: D5 0.45 NS 1,000 ML IV SCH (22:44)
[2023-01-06 23:33] LABS: Specific Gravity 1.022 (1.005-1.030); Urine Bacteria None Seen /HPF (<20); Urine Bilirubin NEGATIVE (Negative); Urine Blood Trace (Negative); Urine Clarity Clear (Clear); Urine Color Colorless (Yellow); Urine Glucose NEGATIVE (Negative); Urine Mucus Slight /HPF (None Seen); Urine Protein NEGATIVE (Negative); Urine RBC <5 /HPF (None Seen); Urine Urobilinogen Normal (Normal)
[2023-01-07] MEDS: METRONIDAZOLE 500mg IVPB 500 MG/100 ML BAG IV SCH ×3 (02:41→16:09)
[2023-01-07 04:11] LABS: Absolute Lymphocytes (CBC) 0.6 K/uL (0.7-4.9); Hematocrit 26.1 % (36.0-45.0); Lymphocytes % 12.6 % (15.3-44.8); MCV 85.7 fL (80-100); MPV 8.4 fL (7.6-11.3); RBC Red Blood Cell Count 3.05 M/uL (3.86-4.86)
[2023-01-07 04:25] LABS: Magnesium 2.1 mg/dL (1.6-2.4); Phosphorus 2.3 mg/dL (2.5-4.9); Potassium 3.6 mEq/L (3.5-5.1)
[2023-01-07] MEDS: D5 0.45 NS 1,000 ML IV SCH ×3 (07:06→20:27)
[2023-01-07] MEDS: METHYLPREDNISOLONE 125 MG INJ IV SCH (07:56)
[2023-01-07] MEDS: POTASS/SODIUM PHOSPHATE 1 PKT POWD.PACK PO SCH ×3 (07:58→10:32)
[2023-01-07] MEDS: CIPROFLOXACIN 400mg IV 400 MG/200 ML BAG IV SCH ×2 (07:58→20:27)
[2023-01-07] MEDS ORDERED: ENOXAPARIN 40 MG/0.4 ML SQ SCH (09:00)
--- NOTE | 2023-01-07 20:02 | P.PN ---
Subjective Date of Service: 01/07/23 Subjective: No new changes, No C/O voiced, Improving Review of Systems 10-point ROS is otherwise unremarkable Physical Examination - Vital Signs Temperature: 98.9 F Blood Pressure: 114/56 Pulse: 97 Respirations: 14 Pulse Ox (%): 99 - Physical Exam General: Alert, In no apparent distress HEENT: Atraumatic, PERRLA, EOMI Neck: Supple, JVD not distended Respiratory: Clear to auscultation bilaterally, Normal air movement Cardiovascular: Regular rate/rhythm, Normal S1 S2 Gastrointestinal: Normal bowel sounds, No tenderness Musculoskeletal: No tenderness Integumentary: No rashes Neurological: Normal speech, Normal tone, Normal affect Lymphatics: No axilla or inguinal lymphadenopathy - Studies Medications List Reviewed: Yes Assessment & Plan - Problems (Diagnosis) (1) Ulcerative colitis Current Visit: Yes Status: Acute (2) Proctitis Current Visit: Yes Status: Acute - Plan - IV hydration -IV antibiotics -outpatient colonoscopy -pain controlled -stool studies - Advance Directives Does patient have a Living Will: No Does patient have a Durable POA for Healthcare: No
[2023-01-08] MEDS: METRONIDAZOLE 500mg IVPB 500 MG/100 ML BAG IV SCH ×2 (01:00→07:31)
[2023-01-08] MEDS: CIPROFLOXACIN 400mg IV 400 MG/200 ML BAG IV SCH (07:31)
[2023-01-08] MEDS: METHYLPREDNISOLONE 125 MG INJ IV SCH (07:32)
[2023-01-08 08:22] LABS: Potassium 3.1 mEq/L (3.5-5.1)
[2023-01-08 08:32] VITALS: BP 102/53; TEMP 99.1
[2023-01-08] MEDS ORDERED: POTASSIUM CL SA 10 MEQ TAB PO ONE (09:00)
[2023-01-08] MEDS: D5 0.45 NS 1,000 ML IV SCH ×2 (09:19→13:00)
[2023-01-08 09:32] VITALS: O2SAT 96
--- NOTE | 2023-01-08 11:19 | EKG ---
Test Date: 2023-01-06 Test Time: 16:09:04 Offset Pressman: HE MEASUREMENT RESULTS: Intervals: Rate: 89 WI: 136 QRSD: 72 QT: 352 QTc: 428 [place]: P: 39 WI: 136 QRS: 26 T: 52 INTERPRETIVE STATEMENTS: Normal sinus rhythm Normal ECG Compared to ECG 11/27/2022 14:43:51 Sinus tachycardia no longer present Myocardial infarct finding no longer present Electronically Signed On 01-08-23 11:17:23 CDT by Juan Griffin
== END 2023-01-08 15:55 | disposition home or self-care (01) | DRG 394 ==
LOC: ER 15:41 → 4TH 21:09
PROVIDERS: ADMIT Internal Medicine Nephrology; ATTEND Hospitalist
DX: K62.89 Other specified diseases of anus and rectum (principal); K51.511 Left sided colitis with rectal bleeding; E03.9 Hypothyroidism, unspecified; D64.9 Anemia, unspecified; E87.6 Hypokalemia; E78.5 Hyperlipidemia, unspecified; K80.20 Calculus of gallbladder without cholecystitis without obstruction; Z88.1 Allergy status to other antibiotic agents; Z79.899 Other long term (current) drug therapy; Z79.890 Hormone replacement therapy
CPT/HCPCS: 36415; 74177; 80048; 80053; 81001; 83605; 83735; 84100; 84132; 85025; 85610; 85730; 86850; 86900; 86901; 87040; 87205; 93005; 96365; 96375; 99285; J0744; J1650; J2930; J3480; J7030; J7799; Q9967